=== PATIENT | female | born 1960 | race Caucasian/White ===

== ENCOUNTER → 2019-09-23 | Outpatient (CLI) | payer BC ==
--- NOTE | 2019-09-23 12:30 | KCIC ---
MR of the right knee HISTORY: Right knee pain, laterally recent months. TECHNIQUE: Routine multiplanar sequences are obtained. FINDINGS: No evidence of medial or lateral meniscal tear. Anterior and posterior cruciate ligaments are intact. Medial collateral ligament is intact. Iliotibial band unremarkable. Fibular collateral ligament, biceps femoris tendon and popliteus tendon are intact. Extensor mechanism is intact. Trace joint fluid. No significant Hartmann's cyst. Mild fissuring of the patella. No acute articular cartilage defect. No acute fracture. No aggressive bone destruction. IMPRESSION: 1. Mild fissuring of the medial patellar cartilage. 2. No evidence of meniscal tear or other internal derangement. Electronically signed by: Angel Cardenas MD (09/23/2019 12:27 PM) [id number]
== END | disposition home or self-care (01) ==
LOC: KCIC MRI 10:52
PROVIDERS: ATTEND Nurse Practitioner Family
DX: M25.561 Pain in right knee (principal)
CPT/HCPCS: 73721

== ENCOUNTER → 2021-04-01 | Day surgery (SDC) | payer BC ==
[~2021-04-01] VITALS: Ht 162.6 cm; Wt 75.0 kg
[~2021-04-01] MED LIST: ALBUTEROL SULFATE 2.5 MG/3 ML NEBU. NEB PRN; AMIT25TA PO; AMOX1TAB11 PO; EPINEPHrine 1 MG/ML VIAL INJ PRN; IV RINGERS,LACTATED 1000ML 1,000 ML IV SCH; LIDOCAINE 1% Multi-Dose 20 ML VIAL. INJ PRN; LIDOCAINE 2% PF 5 ML VIAL. ONE; LIDOCAINE 2% VISCOUS 100 ML BOTTLE. MM PRN; LIDOCAINE 4% TOPICAL 50 ML SOLUTION. MM PRN; OMEP40CA7 PO; PREG-9 PO; PROPOFOL 10 MG/ML (20ML) VIAL. IV ONE; ePHEDrine PF IN SALINE 50 MG/10 ML SYRINGE. IV ONE
[2021-04-01 10:04] VITALS: BP 119/70
[2021-04-01 10:27] LABS: BASO # 0.1 x10^3/uL (0.0-0.2); BASO % 1 % (0-3); EOS # 0.2 x10^3/uL (0.0-0.7); EOS % 2 % (0-3); HEMATOCRIT 39.8 % (36.0-47.0); HEMOGLOBIN 13.6 g/dL (12.0-15.5); LYMPH # 2.1 x10^3/uL (1.0-4.8); LYMPH % 30 % (24-48); MEAN CORPUSCULAR HEMOGLOBIN 31 pg (25-35); MEAN CORPUSCULAR HGB CONC 34 g/dL (31-37); MEAN CORPUSCULAR VOLUME 92 fL (79-100); MONO # 0.4 x10^3/uL (0.0-1.1); MONO % 6 % (0-9); NEUT # 4.4 x10^3/uL (1.8-7.7); NEUT % 61 % (31-73); PLATELET COUNT 176 x10^3/uL (140-400); RED BLOOD COUNT 4.33 x10^6/uL (3.50-5.40); RED CELL DISTRIBUTION WIDTH 14.4 % (11.5-14.5); WHITE BLOOD COUNT 7.2 x10^3/uL (4.0-11.0)
[2021-04-01 10:37] LABS: PROTHROMBIN TIME PATIENT 11.7 SEC (11.7-14.0)
--- NOTE | 2021-04-01 11:32 | OP ---
DATE OF SURGERY: 04/01/2021 BRONCHOSCOPY NOTE INDICATION: Hemoptysis. DESCRIPTION OF PROCEDURE: Informed consent was obtained from the patient, all risks and benefits were explained. She agreed to proceed with the procedure. Propofol was used for sedation by Anesthesia. Bronch was introduced through the left nostril. The upper airway was passed. Vocal cords moves equally with respiration. The trachea was entered. There was tracheal cartilage abnormality seen throughout the trachea. Dafne was sharp. Right lung was first examined. All subsegments of right upper, right middle and right lower lobe were examined. No endobronchial lesions seen. No secretions seen. Bronch was introduced into the left lung. There was no abnormality seen in the left upper lobe. However, upon inspection of the left lower lobe superior segment, there was some blood-tinged secretions coming out of the superior subsegment of the left lower lobe. Further inspection of the bronchoscopy and that segment revealed no endobronchial lesions. The other subsegment of the left lower lobe did not show any lesion either. Bronchoalveolar lavage performed from the superior subsegment of the left lower lobe. The patient tolerated the procedure well. IMPRESSION: 1. 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 No endobronchial lesion seen in either the right or the left lung. 3. Blood-tinged secretions coming out from the superior subsegment of the left lower lobe spilling into the other segments. Upon further inspection, no definite endobronchial lesion seen in that segment. Multiple lavages obtained from that subsegment and specimen sent for AFB culture and sensitivity, fungus and cytology and regular cultures. 4. The patient to follow up with Dr. Humberto Martin in the office to discuss the results of bronchoscopy. [facility] [place] Soraya TID: [id number] [facility] HOSPITALCynthia
[2021-04-01 11:44] VITALS: BP 118/57
--- NOTE | 2021-04-05 17:07 | PATHOLOGY ---
Note [facility] Accession Number: [id number] TESTS RESULT FLAG UNITS REF RANGE LAB Clinician Provided Cytology Information No. of containers..01 Other (Miscellaneous) Source: BAL LLL DIAGNOSIS: BAL LLL NEGATIVE FOR MALIGNANT CELLS. NORMAL BRONCHIAL CELLS ARE PRESENT. PULMONARY MACROPHAGES PRESENT, INDICATIVE OF LOWER RESPIRATORY TRACT SAMPLING. Signed out by: 02 Jeffrey Alston MD, Pathologist NPI- [id number] Performed by: Marisela Pal Driver License Examiner ([facility]) Gross description: 01 5ML, HAZY LIGHT, PINK /LCS 04/02/2021 1549 Local FLAG LEGEND: L-Low Normal,H-High Normal,LL-Alert Low,HH-Alert High <-Panic Low,>-Panic High,A-Abnormal,AA-Critical Abnormal Performed at: [facility] [address] [place] [address] Joel Nayak MD, [address] [address] [place] [address] Jeffrey Alston MD, Performed at: [address], [place] [id number] MD Joel Nayak MD Phone: [phone]
== END | disposition home or self-care (01) ==
LOC: SURG 09:23
PROVIDERS: ATTEND Internal Medicine Critical Care Medicine
DX: R04.2 Hemoptysis (principal); E78.00 Pure hypercholesterolemia, unspecified; K21.9 Gastro-esophageal reflux disease without esophagitis; M19.90 Unspecified osteoarthritis, unspecified site; Z87.891 Personal history of nicotine dependence; Z79.899 Other long term (current) drug therapy; Z98.890 Other specified postprocedural states
CPT/HCPCS: 31624; 36415; 85025; 85610; 87070; 87102; 87116; 87205; 88112; 94640; J2704; J3490; J7613; 31622; J0171

== ENCOUNTER 2021-05-17 15:16 | Inpatient (IN) | payer BC ==
[~2021-05-17] VITALS: Ht 162.6 cm; Wt 69.9 kg
[~2021-05-17 15:16] MED LIST changes: -ALBUTEROL SULFATE 2.5 MG/3 ML NEBU. NEB PRN; -EPINEPHrine 1 MG/ML VIAL INJ PRN; -IV RINGERS,LACTATED 1000ML 1,000 ML IV SCH; -LIDOCAINE 1% Multi-Dose 20 ML VIAL. INJ PRN; -LIDOCAINE 2% PF 5 ML VIAL. ONE; -LIDOCAINE 2% VISCOUS 100 ML BOTTLE. MM PRN; -LIDOCAINE 4% TOPICAL 50 ML SOLUTION. MM PRN; -PROPOFOL 10 MG/ML (20ML) VIAL. IV ONE; -ePHEDrine PF IN SALINE 50 MG/10 ML SYRINGE. IV ONE
--- NOTE | 2021-05-17 20:09 | PHYS DOC ---
Past Medical History Past Surgical History: No Surgical History Smoking Status: Current Every Day Smoker Alcohol Use: None General Adult EDM: Chief Complaint: MULTIPLE COMPLAINTS HPI: HPI: Patient is a 61 year old female who presents with tingling to the left side of her upper forehead, eye, nose, top of her left lip. Tingling is localized to left side of her face. Patient also reporting binocular diplopia. Patient states that all of her symptoms are coming and going. Patient takes 325 aspirin daily. Patient states that she was seen by her PCP this morning who ordered a CT of her head and advised her to be seen in the ER for further imaging. Patient also reports that she has been on antibiotics for 2 months for pneumonia. "My doctor said that my chest x-ray looked worse today". history of hypertension, hyperlipidemia, COPD. Review of Systems: Review of Systems: ROS At least 10 ROS systems have been reviewed and are negative except as documented in the HPI. General: Negative except as outlined in HPI above. Skin: Negative except as outlined in HPI above. HEENT: Negative except as outlined in HPI above. Neck: Negative except as outlined in HPI above. Respiratory: Negative except as outlined in HPI above.. Cardiovascular: Negative except as outlined in HPI above. Abdomen: Negative except as outlined in HPI above. : Negative except as outlined in HPI above. Back/MSK: Negative except as outlined in HPI above. Neuro: Negative except as outlined in HPI above. Psych: Negative except as outlined in HPI above. Heart Score: C/O Chest Pain: No Risk Factors: Risk Factors: DM, Current or recent (<one month) smoker, HTN, HLP, family history of CAD, obesity. Risk Scores: Score 0 - 3: 2.5% MACE over next 6 weeks - Discharge Home Score 4 - 6: 20.3% MACE over next 6 weeks - Admit for Clinical Observation Score 7 - 10: 72.7% MACE over next 6 weeks - Early Invasive Strategies Allergies: Allergies: Allergies Coded Allergies Type Severity Reaction Last Updated Verified No Known Drug Allergies 04/01/21 No Physical Exam: PE: Constitutional: Well developed, well nourished, no acute distress, non-toxic appearance. [] HENT: Normocephalic, atraumatic, bilateral external ears normal, oropharynx moist, no oral exudates, nose normal. [] Eyes: PERRLA, conjunctiva normal, no discharge Neck: Normal range of motion, no tenderness, supple, no stridor. [] Cardiovascular:Heart rate regular rhythm, no murmur [] Lungs & Thorax: Bilateral breath sounds clear to auscultation [] Abdomen: Bowel sounds normal, soft, no tenderness, no masses, no pulsatile masses. [] Skin: Warm, dry, no erythema, no rash. [] Back: No tenderness, no CVA tenderness. [] Extremities: No tenderness, no cyanosis, no clubbing, ROM intact, no edema. [] Neurologic: Alert and oriented X 3, normal motor function, tingling to left forehead, left side of nose, left upper lip, left cheek Psychologic: Affect normal, judgement normal, mood normal. [] Current Patient Data: Vital Signs: Vital Signs Date Time Temp Pulse Resp B/P (MAP) Pulse Ox O2 Delivery O2 Flow Rate FiO2 05/17/21 16:29 98.7 101 20 133/67 (89) 90 Room Air 98.7 EKG: EKG: Sinus rhythm. Heart rate 93 bpm. No STEMI. [] Radiology/Procedures: Radiology/Procedures: []EXAM: CHEST 2 VIEWS. HISTORY: Cough. COMPARISON: Today's CT. FINDINGS: Frontal and lateral views of the chest are obtained. There is an airspace infiltrate in the left lower lobe. Hyperinflation is consistent with chronic obstructive pulmonary disease. There is no pneumothorax or pleural effusion. The heart is not enlarged. There are atherosclerotic calcifications of the aorta. IMPRESSION: 1. Left lower lobe pneumonia. 2. Chronic obstructive pulmonary disease. Electronically signed by: Ricky Carlos MD (05/17/2021 9:43 PM) [id number] Course & Med Decision Making: Course & Med Decision Making Pertinent Labs and Imaging studies reviewed. (See chart for details) [] Nontoxic-appearing, 61-year-old female sent in by her PCP for abnormal CT head results. CT head concerning for intracranial hemorrhage. Patient reports that her symptoms continue to come and go. Patient takes 325 of Igor aspirin daily. Patient is hemodynamically stable. ER work-up consisted of urinalysis, labs, CT head, chest x-ray. Chest x-ray shows left lower lobe pneumonia which patient is currently being treated for with antibiotics. All labs unremarkable. Called Dr. Garay and spoke with NELLIE Neves regarding patient case. Pura recommended patient be admitted to the ICU with frequent neuro checks and blood pressure monitoring with a MRI scheduled for the morning. Pura also recommended contacting neurology. I spoke with Dr. Fraga who is consulted with neurology. Spoke with Dr. Pineda who will be accepting patient for intracranial hemorrhage. Discussed all results with patient. Discussed final admission plan. Patient agrees with admission plan and is appreciative. Patient is hemodynamically stable at the time of admission. Dragon Disclaimer: Dragon Disclaimer: This electronic medical record was generated, in whole or in part, using a voice recognition dictation system. Departure Departure Impression: Primary Impression: Intracranial hemorrhage Disposition: ADMITTED INPATIENT Admitting Physician: ALYSA Condition: STABLE Referrals: DONG NÚÑEZ MD (PCP) MASOOD RODRIGUEZ HEEL BOOM OPERATOR May 17, 2021 20:09
[2021-05-17] MEDS ORDERED: IV NORMAL SALINE 1000ML BAG 1,000 ML IV SCH (20:30)
[2021-05-17] MEDS ORDERED: ASPIRIN CHEWABLE 81 MG TABLET. PO ONE (20:30)
[2021-05-17 20:35] LABS: BASO # 0.1 x10^3/uL (0.0-0.2); BASO % 1 % (0-3); EOS # 0.2 x10^3/uL (0.0-0.7); EOS % 2 % (0-3); HEMATOCRIT 29.6 % (36.0-47.0); LYMPH # 3.6 x10^3/uL (1.0-4.8); LYMPH % 40 % (24-48); MEAN CORPUSCULAR HEMOGLOBIN 32 pg (25-35); MEAN CORPUSCULAR HGB CONC 34 g/dL (31-37); MEAN CORPUSCULAR VOLUME 95 fL (79-100); MONO # 0.6 x10^3/uL (0.0-1.1); MONO % 7 % (0-9); NEUT # 4.5 x10^3/uL (1.8-7.7); NEUT % 50 % (31-73); PLATELET COUNT 244 x10^3/uL (140-400); RED BLOOD COUNT 3.13 x10^6/uL (3.50-5.40); RED CELL DISTRIBUTION WIDTH 15.7 % (11.5-14.5); WHITE BLOOD COUNT 8.9 x10^3/uL (4.0-11.0)
[2021-05-17 20:38] LABS: BILIRUBIN,URINE SMALL (NEG); CLARITY,URINE CLEAR; COLOR,URINE AMBER; NITRITE,URINE NEGATIVE (NEG); PH,URINE 5.5 (<5.0-8.0); PROTEIN,URINE NEGATIVE (NEG-TRACE)
[2021-05-17 20:44] LABS: BACTERIA,URINE 0 /HPF (0-FEW); RBC,URINE 0 /HPF (0-2)
[2021-05-17 20:44] LABS: PROTHROMBIN TIME PATIENT 12.5 SEC (11.7-14.0)
[2021-05-17 20:51] LABS: CALCIUM 8.3 mg/dL (8.5-10.1); POTASSIUM 3.8 mmol/L (3.5-5.1)
[2021-05-17 21:00] LABS: ALBUMIN 3.9 g/dL (3.4-5.0); ALBUMIN/GLOBULIN RATIO 1.3 (1.0-1.7); MAGNESIUM 1.9 mg/dL (1.8-2.4); TOTAL BILIRUBIN 0.6 mg/dL (0.2-1.0)
[2021-05-17] MEDS ORDERED: ACETAMINOPHEN 650 MG SUPP.RECT. PR PRN (21:15)
[2021-05-17] MEDS ORDERED: PHARMACY TO REVIEW MEDS. MC PRN (21:15)
--- NOTE | 2021-05-17 21:45 | RAD ---
EXAM: CHEST 2 VIEWS. HISTORY: Cough. COMPARISON: Today's CT. FINDINGS: Frontal and lateral views of the chest are obtained. There is an airspace infiltrate in the left lower lobe. Hyperinflation is consistent with chronic obs tructive pulmonary disease. There is no pneumothorax or pleural effusion. The heart is not enlarged. There are atherosclerotic calcifications of the aorta. IMPRESSION: 1. Left lower lobe pneumonia. 2. Chronic obstructive pulmonary disease. Electronically signed by: Ricky Carlos MD (05/17/2021 9:43 PM) [id number]
--- NOTE | 2021-05-17 22:39 | EKG ---
[facility] [address] [place] [address] Test Date: 2021-05-17 Test Time: 21:04:37 Pat Name: PATTI ALICIA Department: Room: Gender: F Hematologist Oncologist: : [id number] Requested By: MASOOD RODRIGUEZ Order Number: [id number] Reading MD: Kunal Gonzalez Measurements Intervals [place] Rate: 93 P: 51 WV: 164 QRS: -28 QRSD: 70 T: 42 QT: 352 QTc: 440 Interpretive Statements SINUS RHYTHM LOW LIMB LEAD VOLTAGE Electronically Signed On 05-18-2021 14:18:54 [employer]CH[employer]IC by Kunal Gonzalez
[2021-05-17 23:30] VITALS: BP 118/55
[2021-05-17 23:45] VITALS: BP 101/61
[2021-05-18] VITALS (23 sets, daily range): BP systolic 85–117; BP diastolic 46–76
[2021-05-18] MEDS: IV NORMAL SALINE 1000ML BAG 1,000 ML IV SCH ×3 (01:00→21:00)
[2021-05-18] MEDS ORDERED: RALO60TA PO (01:03)
[2021-05-18] MEDS ORDERED: ASPI325T11 PO (01:03)
[2021-05-18] MEDS ORDERED: ATOR20TA58 PO (01:03)
[2021-05-18] MEDS ORDERED: AZITHROMYCIN 500 MG in IV NORMAL SALINE 250ML 250 ML IV SCH (08:00)
--- NOTE | 2021-05-18 08:10 | PDOC1 ---
History and Physical Date of Service: DOS: DATE: 05/18/21 TIME: 07:48 Chief Complaint: Chief Complain: TIA symptoms and pneumonia History of Present Illness: HPI: History obtained from discussion with the ED physician and chart review: 61-year-old female with past medical history of smoking, depression, neuropathic pain, peripheral vascular disease who comes in with tingling on the left side of her face. She also noticed double vision as well. Symptoms are coming and going. Patient does take aspirin 325 mg daily and has stated that she has had some hemoptysis. She also has been taking antibiotics for the past 2 months for pneumonia. Chest x-ray was done before admission on the day before and the chest x-ray apparently looked worse. PCP also ordered a CT head which showed intracranial hemorrhage and she was advised to come to the ED for further imaging. Patient currently denies fevers, shortness of breath, abdominal pain, hematuria, dysuria or syncope or headaches. Past Medical/Surgical History: PMH/PSH: PVD, COPD, pneumonia, GERD Past Surgical History: Aortofemoral iliac bypass Allergies: Allergies: Coded Allergies: No Known Drug Allergies (Unverified , 04/01/21) Family History: Family History: Reviewed with no relevant findings Social History: Social History: Smoking Status: Current Every Day Smoker Alcohol Use: None Current Medications: Current Medications Current Medications Aspirin (Aspirin Chewable) 324 mg 1X ONCE PO ; Start 05/17/21 at 20:30; Stop 05/17/21 at 20:32; Status DC Sodium Chloride 1,000 ml @ 1,000 mls/hr Q1H IV Last administered on 05/17/21at 20:30; Start 05/17/21 at 20:30; Stop 05/17/21 at 21:29; Status DC Info (Review Meds) 1 ea PRN 1X PRN MC SEE COMMENTS; Start 05/17/21 at 21:15 Acetaminophen (Tylenol Supp) 650 mg PRN Q6HRS PRN FL FEVER > 100.5'F or 38'C; Start 05/17/21 at 21:15 Nicardipine HCl 50 mg/Sodium Chloride 250 ml @ 25 mls/hr CONT PRN IV HYPERTENSION; Start 05/17/21 at 21:15 Sodium Chloride 1,000 ml @ 100 mls/hr Q10H IV Last administered on 05/18/21at 01:00; Start 05/18/21 at 01:00 Active Scripts Active Reported Evista (Raloxifene Hcl) 60 Mg Tablet 60 Mg PO DAILY Atorvastatin Calcium 20 Mg Tablet 20 Mg PO HS Aspirin Ec (Aspirin) 325 Mg Tablet. 325 Mg PO DAILY Amitriptyline Hcl 25 Mg Tablet 1 Tab PO QHS Lyrica (Pregabalin) 75 Mg Capsule 1 Cap PO TID Amox Tr-K Clv 875-125 Mg Tab (Amoxicillin/Potassium Clav) 1 Each Tablet 1 Tab PO BID Omeprazole 40 Mg Capsule. 1 Cap PO DAILY ROS: Review of Systems Review of System REVIEW OF SYSTEMS: GENERAL: Denies weakness SKIN: No bruising, hair changes or rashes. EYES: No blurred, double or loss of vision. NOSE AND THROAT: No history of nosebleeds, hoarseness or sore throat. HEART: No history of palpitations, chest pain or shortness of breath on exertion. LUNGS: Denies cough, hemoptysis, wheezing or shortness of breath. GASTROINTESTINAL: Denies changes in appetite, nausea, vomiting, diarrhea or constipation. GENITOURINARY: No history of frequency, urgency, hesitancy or nocturia. NEUROLOGIC: Tingling on the left side of her face and double vision PSYCHIATRIC: No history of panic, anxiety or depression. ENDOCRINE: No history of heat or cold intolerance, polyuria or polydipsia. EXTREMITIES: Denies joint pain, pain on walking or stiffness. Physical Exam: Vital Signs: Vital Signs Date Time Temp Pulse Resp B/P (MAP) Pulse Ox O2 Delivery O2 Flow Rate FiO2 05/18/21 07:00 98.4 89 23 111/61 (78) 96 Room Air 98.4 Physcial Exam: General: Well developed, well nourished, no acute distress, well appearing HEENT: Pupils equally round and reactive to light, EOMI, no discharge, normal conjunctiva Neck: Supple, no nuchal rigidity, no JVD, trachea midline, no tenderness Cardiac: RRR, no murmurs, no gallops, no rubs Chest/Lungs: CTAB, no wheeze, no rhonchi, no crackles Abdomen: soft, non-distended, no guarding, no peritoneal signs, non-tender Back: No tenderness Extremities: no edema, pulses intact, non-tender,capillary refill <3 sec bilateral upper and lower extremities, Neuro: Alert and oriented x 4, no focal deficits, normal speech Labs: Labs: Laboratory Tests Test 05/17/21 19:35 05/17/21 19:40 05/17/21 23:30 05/18/21 02:50 Urine Collection Type Unknown Urine Color Leticia Urine Clarity Clear Urine pH 5.5 (<5.0-8.0) Urine Specific [place] 1.025 (1.000-1.030) Urine Protein Negative mg/dL (NEG-TRACE) Urine Glucose (UA) Negative mg/dL (NEG) Urine Ketones (Stick) Negative mg/dL (NEG) Urine Blood Negative (NEG) Urine Nitrite Negative (NEG) Urine Bilirubin Small (NEG) Urine Urobilinogen Dipstick 1.0 mg/dL (0.2 mg/dL) Urine Leukocyte Esterase Negative (NEG) Urine RBC 0 /HPF (0-2) Urine WBC 1-4 /HPF (0-4) Urine Squamous Epithelial Cells Mod /LPF Urine Bacteria 0 /HPF (0-FEW) Urine Mucus Mod /LPF White Blood Count 8.9 x10^3/uL (4.0-11.0) Red Blood Count 3.13 x10^6/uL (3.50-5.40) Hemoglobin 10.0 g/dL (12.0-15.5) Hematocrit 29.6 % (36.0-47.0) Mean Corpuscular Volume 95 fL (79-100) Mean Corpuscular Hemoglobin 32 pg (25-35) Mean Corpuscular Hemoglobin Concent 34 g/dL (31-37) Red Cell Distribution Width 15.7 % (11.5-14.5) Platelet Count 244 x10^3/uL (140-400) Neutrophils (%) (Auto) 50 % (31-73) Lymphocytes (%) (Auto) 40 % (24-48) Monocytes (%) (Auto) 7 % (0-9) Eosinophils (%) (Auto) 2 % (0-3) Basophils (%) (Auto) 1 % (0-3) Neutrophils # (Auto) 4.5 x10^3/uL (1.8-7.7) Lymphocytes # (Auto) 3.6 x10^3/uL (1.0-4.8) Monocytes # (Auto) 0.6 x10^3/uL (0.0-1.1) Eosinophils # (Auto) 0.2 x10^3/uL (0.0-0.7) Basophils # (Auto) 0.1 x10^3/uL (0.0-0.2) Prothrombin Time 12.5 SEC (11.7-14.0) Prothromb Time International Ratio 0.9 (0.8-1.1) Sodium Level 143 mmol/L (136-145) Potassium Level 3.8 mmol/L (3.5-5.1) Chloride Level 104 mmol/L (98-107) Carbon Dioxide Level 27 mmol/L (21-32) Anion Gap 12 (6-14) Blood Urea Nitrogen 11 mg/dL (7-20) Creatinine 1.0 mg/dL (0.6-1.0) Estimated GFR (Cockcroft-Gault) 56.0 BUN/Creatinine Ratio 11 (6-20) Glucose Level 102 mg/dL (70-99) Calcium Level 8.3 mg/dL (8.5-10.1) Magnesium Level 1.9 mg/dL (1.8-2.4) Total Bilirubin 0.6 mg/dL (0.2-1.0) Aspartate Amino Transf (AST/SGOT) 18 U/L (15-37) Alanine Aminotransferase (ALT/SGPT) 13 U/L (14-59) Alkaline Phosphatase 113 U/L (46-116) Troponin I High Sensitivity 5 ng/L (4-50) 5 ng/L (4-50) 6 ng/L (4-50) TV-Hyx-Y-Type Natriuretic Peptide 118 pg/mL (0-124) Total Protein 7.0 g/dL (6.4-8.2) Albumin 3.9 g/dL (3.4-5.0) Albumin/Globulin Ratio 1.3 (1.0-1.7) Laboratory Tests Test 05/17/21 19:35 05/17/21 19:40 05/17/21 23:30 05/18/21 02:50 Urine Collection Type Unknown Urine Color [place] Urine Clarity Clear Urine pH 5.5 (<5.0-8.0) Urine Specific [place] 1.025 (1.000-1.030) Urine Protein Negative mg/dL (NEG-TRACE) Urine Glucose (UA) Negative mg/dL (NEG) Urine Ketones (Stick) Negative mg/dL (NEG) Urine Blood Negative (NEG) Urine Nitrite Negative (NEG) Urine Bilirubin Small (NEG) Urine Urobilinogen Dipstick 1.0 mg/dL (0.2 mg/dL) Urine Leukocyte Esterase Negative (NEG) Urine RBC 0 /HPF (0-2) Urine WBC 1-4 /HPF (0-4) Urine Squamous Epithelial Cells Mod /LPF Urine Bacteria 0 /HPF (0-FEW) Urine Mucus Mod /LPF White Blood Count 8.9 x10^3/uL (4.0-11.0) Red Blood Count 3.13 x10^6/uL (3.50-5.40) Hemoglobin 10.0 g/dL (12.0-15.5) Hematocrit 29.6 % (36.0-47.0) Mean Corpuscular Volume 95 fL (79-100) Mean Corpuscular Hemoglobin 32 pg (25-35) Mean Corpuscular Hemoglobin Concent 34 g/dL (31-37) Red Cell Distribution Width 15.7 % (11.5-14.5) Platelet Count 244 x10^3/uL (140-400) Neutrophils (%) (Auto) 50 % (31-73) Lymphocytes (%) (Auto) 40 % (24-48) Monocytes (%) (Auto) 7 % (0-9) Eosinophils (%) (Auto) 2 % (0-3) Basophils (%) (Auto) 1 % (0-3) Neutrophils # (Auto) 4.5 x10^3/uL (1.8-7.7) Lymphocytes # (Auto) 3.6 x10^3/uL (1.0-4.8) Monocytes # (Auto) 0.6 x10^3/uL (0.0-1.1) Eosinophils # (Auto) 0.2 x10^3/uL (0.0-0.7) Basophils # (Auto) 0.1 x10^3/uL (0.0-0.2) Prothrombin Time 12.5 SEC (11.7-14.0) Prothromb Time International Ratio 0.9 (0.8-1.1) Sodium Level 143 mmol/L (136-145) Potassium Level 3.8 mmol/L (3.5-5.1) Chloride Level 104 mmol/L (98-107) Carbon Dioxide Level 27 mmol/L (21-32) Anion Gap 12 (6-14) Blood Urea Nitrogen 11 mg/dL (7-20) Creatinine 1.0 mg/dL (0.6-1.0) Estimated GFR (Cockcroft-Gault) 56.0 BUN/Creatinine Ratio 11 (6-20) Glucose Level 102 mg/dL (70-99) Calcium Level 8.3 mg/dL (8.5-10.1) Magnesium Level 1.9 mg/dL (1.8-2.4) Total Bilirubin 0.6 mg/dL (0.2-1.0) Aspartate Amino Transf (AST/SGOT) 18 U/L (15-37) Alanine Aminotransferase (ALT/SGPT) 13 U/L (14-59) Alkaline Phosphatase 113 U/L (46-116) Troponin I High Sensitivity 5 ng/L (4-50) 5 ng/L (4-50) 6 ng/L (4-50) JV-Vez-T-Type Natriuretic Peptide 118 pg/mL (0-124) Total Protein 7.0 g/dL (6.4-8.2) Albumin 3.9 g/dL (3.4-5.0) Albumin/Globulin Ratio 1.3 (1.0-1.7) Images: Images PROCEDURE: CHEST PA & LATERAL IMPRESSION: 1. Left lower lobe pneumonia. 2. Chronic obstructive pulmonary disease. Assessment/Plan Assessment/Plan Acute intracranial hemorrhage, concerning for metastasis Left lower lobe pneumonia, possible gram-negative organisms possible cavitary mass History of COPD History of tobacco misuse Admit to hospitalist services for further management Continue empiric IV antibiotics Pending blood cultures and Legionella urine antigen and MRSA screen Pulmonology consult for cavitary mass, possible repeat bronchoscopy Neuro consult Neurosurgery consult Continue telemetry monitoring Continue every 2 neurochecks Pending MRI of the brain Continue Cardene drip to maintain systolic blood pressures between 140-1 80 Contraindicated at this time for DVT prophylaxis N.p.o. CODE STATUS full Discussed with RN and SW Disposition continue ICU care for neuro checks DPOA: Salvador Lobito, salvador A total of 45 minutes of critical care time was spent in reviewing chart, labs, and images. Discussed with RN and SW. Smoking cessation: Total time spent was 12 minutes in face to face counseling. Patient has agreed to consider nicotine patches/gum or to start on Varnicline when discharged Justifications for Admission Other Justification BOBO MARSHALL MD May 18, 2021 08:10
[2021-05-18] MEDS ORDERED: GADOTERATE 7.5 MMOL/15ML VIAL. IVP ONE (08:45)
[2021-05-18] MEDS ORDERED: cefTRIAXone IV Push 1 GM VIAL. IVP SCH (09:00)
--- NOTE | 2021-05-18 09:10 | PDOC2 ---
NEUROLOGY CONSULT Date of Service DOS: DATE: 05/18/21 TIME: 08:54 Reason for Consult Reason for Consult: Cerebral hemorrhage Referring Physician Referring Physician: Dr. Dow Source Source: Chart review, Patient History of Present Illness History of Present Illness The patient is a 61-year-old right-handed female who noticed some tingling in her left forehead and face yesterday morning. She also had some intermittent diplopia. She went to her primary care physician who ordered a CT of the head. Patient also had an abnormal CT of the chest. She was sent to the [place] emergency department. I discussed the case with NELLIE Dempsey last night, because of the possible hemorrhage she was not a candidate for alteplase and there was no need for other acute intervention. Neurosurgery is also on the case. This morning the patient still has the left facial numbness but denies headache or diplopia. There is no prior history of stroke, seizure, or head injury. She s ays that she has had pneumonia for the past 3 months. She smokes a pack of cigarettes per day. She has a chronic right foot drop with numbness ever since aortic surgery 3 years ago Past Medical History Pulmonary: COPD, Pneumonia GI: GERD Musculoskeletal: Osteoarthritis Past Surgical History Past Surgical History: , Tonsillectomy, Other (Aorta?, Left elbow and hand ) Family History Family History: No pertinent hx Social History Social History , works at the [employer], smokes 1 pack of cigarettes per day, rare alcohol Current Medications Current Medications Current Medications Aspirin (Aspirin Chewable) 324 mg 1X ONCE PO ; Start 05/17/21 at 20:30; Stop 05/17/21 at 20:32; Status DC Sodium Chloride 1,000 ml @ 1,000 mls/hr Q1H IV Last administered on 05/17/21at 20:30; Start 05/17/21 at 20:30; Stop 05/17/21 at 21:29; Status DC Info (Review Meds) 1 ea PRN 1X PRN MC SEE COMMENTS; Start 05/17/21 at 21:15 Acetaminophen (Tylenol Supp) 650 mg PRN Q6HRS PRN CA FEVER > 100.5'F or 38'C; Start 05/17/21 at 21:15 Nicardipine HCl 50 mg/Sodium Chloride 250 ml @ 25 mls/hr CONT PRN IV HYPERTENSION; Start 05/17/21 at 21:15 Sodium Chloride 1,000 ml @ 100 mls/hr Q10H IV Last administered on 05/18/21at 01:00; Start 05/18/21 at 01:00 Ceftriaxone Sodium (Rocephin) 1 gm Q24H IVP ; Start 05/18/21 at 09:00 Azithromycin 500 mg/Sodium Chloride 250 ml @ 250 mls/hr Q24H IV ; Start 05/18/21 at 08:00 Gadoterate Meglumine (Clariscan) 14 ml 1X ONCE IVP ; Start 05/18/21 at 08:45; Stop 05/18/21 at 08:46; Status DC Active Scripts Active Reported Evista (Raloxifene Hcl) 60 Mg Tablet 60 Mg PO DAILY Atorvastatin Calcium 20 Mg Tablet 20 Mg PO HS Aspirin Ec (Aspirin) 325 Mg Tablet. 325 Mg PO DAILY Amitriptyline Hcl 25 Mg Tablet 1 Tab PO QHS Lyrica (Pregabalin) 75 Mg Capsule 1 Cap PO TID Amox Tr-K Clv 875-125 Mg Tab (Amoxicillin/Potassium Clav) 1 Each Tablet 1 Tab PO BID Omeprazole 40 Mg Capsule. 1 Cap PO DAILY Allergies Allergies: Coded Allergies: No Known Drug Allergies (Unverified , 04/01/21) ROS Review of System Negative for fever, chills, weight loss, chest pain, indigestion, hematochezia, melena, and dysuria. Positive for dyspnea. Full 14-point review of systems is negative. Physical Exam Physical Examination General: Well-developed, well-nourished, white female, in no acute distress HEENT: Normocephalic andatraumatic. Temporal arteriespulsatile and nontender. Neck: Supple without bruit, no meningismus Musculoskeletal: Stability:see neurologic. Gait exam:see neurologic. Tone:see neurologic.Strength:see neurologic. Neurological: Mental Status:intact, orientation, memory, attention span/concentration, language, fund of knowledge normal. Cranial Nerves:Pupils equal and reactive to light, extraocular movements areintact, visual hurst are full to confrontation. Patchy left facial hypesthesia. There is no facial asymmetry. Vestibulo-ocular reflex is intact. Palate elevates and tongue protrudes in midline. All other cranial related problems are negative except as mentioned before.Reflexes:2+ and symmetric with flexor plantar responses. Motor:4/5 right foot drop, otherwise 5/5 strength with normal tone and bulk. Coordination:Finger-nose finger and rygz-ew-loau testing are normal. Rapid alternating movements and fine finger movements are intact. Gait:Normal. Sens ory:Normal pinprick, vibration, light touch, proprioception. Vitals VITALS Vital Signs Date Time Temp Pulse Resp B/P (MAP) Pulse Ox O2 Delivery O2 Flow Rate FiO2 05/18/21 08:00 90 27 113/55 (74) 91 Room Air 05/18/21 07:00 98.4 98.4 Labs Labs Laboratory Tests Test 05/17/21 19:35 05/17/21 19:40 05/17/21 23:30 05/18/21 02:50 Urine Collection Type Unknown Urine Color Leticia Urine Clarity Clear Urine pH 5.5 (<5.0-8.0) Urine Specific [place] 1.025 (1.000-1.030) Urine Protein Negative mg/dL (NEG-TRACE) Urine Glucose (UA) Negative mg/dL (NEG) Urine Ketones (Stick) Negative mg/dL (NEG) Urine Blood Negative (NEG) Urine Nitrite Negative (NEG) Urine Bilirubin Small (NEG) Urine Urobilinogen Dipstick 1.0 mg/dL (0.2 mg/dL) Urine Leukocyte Esterase Negative (NEG) Urine RBC 0 /HPF (0-2) Urine WBC 1-4 /HPF (0-4) Urine Squamous Epithelial Cells Mod /LPF Urine Bacteria 0 /HPF (0-FEW) Urine Mucus Mod /LPF White Blood Count 8.9 x10^3/uL (4.0-11.0) Red Blood Count 3.13 x10^6/uL (3.50-5.40) Hemoglobin 10.0 g/dL (12.0-15.5) Hematocrit 29.6 % (36.0-47.0) Mean Corpuscular Volume 95 fL (79-100) Mean Corpuscular Hemoglobin 32 pg (25-35) Mean Corpuscular Hemoglobin Concent 34 g/dL (31-37) Red Cell Distribution Width 15.7 % (11.5-14.5) Platelet Count 244 x10^3/uL (140-400) Neutrophils (%) (Auto) 50 % (31-73) Lymphocytes (%) (Auto) 40 % (24-48) Monocytes (%) (Auto) 7 % (0-9) Eosinophils (%) (Auto) 2 % (0-3) Basophils (%) (Auto) 1 % (0-3) Neutrophils # (Auto) 4.5 x10^3/uL (1.8-7.7) Lymphocytes # (Auto) 3.6 x10^3/uL (1.0-4.8) Monocytes # (Auto) 0.6 x10^3/uL (0.0-1.1) Eosinophils # (Auto) 0.2 x10^3/uL (0.0-0.7) Basophils # (Auto) 0.1 x10^3/uL (0.0-0.2) Prothrombin Time 12.5 SEC (11.7-14.0) Prothromb Time International Ratio 0.9 (0.8-1.1) Sodium Level 143 mmol/L (136-145) Potassium Level 3.8 mmol/L (3.5-5.1) Chloride Level 104 mmol/L (98-107) Carbon Dioxide Level 27 mmol/L (21-32) Anion Gap 12 (6-14) Blood Urea Nitrogen 11 mg/dL (7-20) Creatinine 1.0 mg/dL (0.6-1.0) Estimated GFR (Cockcroft-Gault) 56.0 BUN/Creatinine Ratio 11 (6-20) Glucose Level 102 mg/dL (70-99) Calcium Level 8.3 mg/dL (8.5-10.1) Magnesium Level 1.9 mg/dL (1.8-2.4) Total Bilirubin 0.6 mg/dL (0.2-1.0) Aspartate Amino Transf (AST/SGOT) 18 U/L (15-37) Alanine Aminotransferase (ALT/SGPT) 13 U/L (14-59) Alkaline Phosphatase 113 U/L (46-116) Troponin I High Sensitivity 5 ng/L (4-50) 5 ng/L (4-50) 6 ng/L (4-50) GE-Zdr-O-Type Natriuretic Peptide 118 pg/mL (0-124) Total Protein 7.0 g/dL (6.4-8.2) Albumin 3.9 g/dL (3.4-5.0) Albumin/Globulin Ratio 1.3 (1.0-1.7) Laboratory Tests Test 05/17/21 19:35 05/17/21 19:40 05/17/21 23:30 05/18/21 02:50 Urine Collection Type Unknown Urine Color Leticia Urine Clarity Clear Urine pH 5.5 (<5.0-8.0) Urine Specific [place] 1.025 (1.000-1.030) Urine Protein Negative mg/dL (NEG-TRACE) Urine Glucose (UA) Negative mg/dL (NEG) Urine Ketones (Stick) Negative mg/dL (NEG) Urine Blood Negative (NEG) Urine Nitrite Negative (NEG) Urine Bilirubin Small (NEG) Urine Urobilinogen Dipstick 1.0 mg/dL (0.2 mg/dL) Urine Leukocyte Esterase Negative (NEG) Urine RBC 0 /HPF (0-2) Urine WBC 1-4 /HPF (0-4) Urine Squamous Epithelial Cells Mod /LPF Urine Bacteria 0 /HPF (0-FEW) Urine Mucus Mod /LPF White Blood Count 8.9 x10^3/uL (4.0-11.0) Red Blood Count 3.13 x10^6/uL (3.50-5.40) Hemoglobin 10.0 g/dL (12.0-15.5) Hematocrit 29.6 % (36.0-47.0) Mean Corpuscular Volume 95 fL (79-100) Mean Corpuscular Hemoglobin 32 pg (25-35) Mean Corpuscular Hemoglobin Concent 34 g/dL (31-37) Red Cell Distribution Width 15.7 % (11.5-14.5) Platelet Count 244 x10^3/uL (140-400) Neutrophils (%) (Auto) 50 % (31-73) Lymphocytes (%) (Auto) 40 % (24-48) Monocytes (%) (Auto) 7 % (0-9) Eosinophils (%) (Auto) 2 % (0-3) Basophils (%) (Auto) 1 % (0-3) Neutrophils # (Auto) 4.5 x10^3/uL (1.8-7.7) Lymphocytes # (Auto) 3.6 x10^3/uL (1.0-4.8) Monocytes # (Auto) 0.6 x10^3/uL (0.0-1.1) Eosinophils # (Auto) 0.2 x10^3/uL (0.0-0.7) Basophils # (Auto) 0.1 x10^3/uL (0.0-0.2) Prothrombin Time 12.5 SEC (11.7-14.0) Prothromb Time International Ratio 0.9 (0.8-1.1) Sodium Level 143 mmol/L (136-145) Potassium Level 3.8 mmol/L (3.5-5.1) Chloride Level 104 mmol/L (98-107) Carbon Dioxide Level 27 mmol/L (21-32) Anion Gap 12 (6-14) Blood Urea Nitrogen 11 mg/dL (7-20) Creatinine 1.0 mg/dL (0.6-1.0) Estimated GFR (Cockcroft-Gault) 56.0 BUN/Creatinine Ratio 11 (6-20) Glucose Level 102 mg/dL (70-99) Calcium Level 8.3 mg/dL (8.5-10.1) Magnesium Level 1.9 mg/dL (1.8-2.4) Total Bilirubin 0.6 mg/dL (0.2-1.0) Aspartate Amino Transf (AST/SGOT) 18 U/L (15-37) Alanine Aminotransferase (ALT/SGPT) 13 U/L (14-59) Alkaline Phosphatase 113 U/L (46-116) Troponin I High Sensitivity 5 ng/L (4-50) 5 ng/L (4-50) 6 ng/L (4-50) NE-Ila-D-Type Natriuretic Peptide 118 pg/mL (0-124) Total Protein 7.0 g/dL (6.4-8.2) Albumin 3.9 g/dL (3.4-5.0) Albumin/Globulin Ratio 1.3 (1.0-1.7) Images Images [facility] radiology, 05/17: CT HEAD INDICATION: Reason: LEFT SIDED FACIAL NUMBNESS / Spl. Instructions: / History: COMPARISON: None Available. Exposure: One or more of the following individualized dose reduction techniques were utilized for this examination: 1. Automated exposure control 2. Adjustment of the mA and/or kV according to patient size 3. Use of iterative reconstruction technique TECHNIQUE: 5 mm contiguous axial images were obtained from the skull base to the vertex in both bone and soft tissue algorithm. FINDINGS: There is a small focus of hyperdensity identified in the left libertad region measuring 6 mm. Small hypodensity right cerebellum likely old infarct. No mass effect or midline shift. Ventricular size is appropriate. Basal cisterns are patent. No fractures identified.Bhatt-white differentiation is preserved.Globes and orbits are within normal limits. Paranasal sinuses and mastoid air cells are clear. IMPRESSION: 6 mm hyperdense focus identified in the left libertad, differential includes small bleed, venous angioma or metastasis. Recommend MRI without and with IV contrast for further evaluation. Chest CT without intravenous contrast. HISTORY: Hemoptysis. TECHNIQUE: Computed tomographic images of the chest were obtained without contrast. Multiplanar reformatting was performed. *One or more of the following individualized dose reduction techniques were utilized for this examination: 1. Automated exposure control. 2. Adjustment of the mA and/or kV according to patient size. 3. Use of iterative reconstruction technique. COMPARISON: 02/15/2021. FINDINGS: The heart is normal in size. There is calcified atherosclerotic plaque involving the aorta, coronary arteries and aortic arch great vessels. There are nonspecific mediastinal and hilar lymph nodes, some of which are calcified and consistent with healed granulomatous disease. These are stable in appearance. There is progressive masslike consolidation with surrounding groundglass infiltrate involving the left lower lobe. There has been progression of a component of suspected cavitation superimposed on emphysematous change in this location. There is no pneumothorax or pleural effusion. There are few nonspecific groundglass opacities within the right lower lobe and right middle lobe and lingula. There is posterior dependent and basilar atelectasis. There is biapical pleural parenchymal scarring. There is a small hiatal hernia. There are calcified granulomas throughout the spleen. There is no acute or suspicious osseous finding. IMPRESSION: 1. Progressive masslike consolidation involving the left lower lobe with surrounding groundglass infiltrate and component of cavitation and severe focal emphysematous change. The possibility of underlying neoplasm is not excluded. 2. Emphysema with nonspecific groundglass opacity scattered throughout the right lower lobe, right middle lobe and lingula, likely infectious or inflammatory in etiology. 3. Stable nonspecific mediastinal and hilar lymph nodes. Assessment/Plan Assessment/Plan Impression: I reviewed the CT of the head and agree that there is a 6 mm hyperdense focus identified in the left libertad, differential includes small bleed, venous angioma or metastasis. Patient is not hypertensive, doubt hypertensive hemorrhage. [facility] Dr. Martin ordered this study as well as a chest CT which is also abnormal as reviewed above. Recommendations: MRI of the brain with and without contrast Further studies depending on the results including CT angiogram, but with abnormal chest CT and normal blood pressure I am mostly worried about a metastasis. Angiogram would not help much if this is a small venous or cavernous angioma. Pulmonary consultation Also see hemorrhagic stroke orders. Thank you for letting me help with the patient's care. SANDIE SANTIAGO MD May 18, 2021 09:10
--- NOTE | 2021-05-18 10:24 | RAD ---
MRI BRAIN WO+W History:Reason: hemorrhage vs met libertad, 14mL clariscan / Spl. Instructions: / History: Technique: Multiplanar, multi sequential without and with intravenous contrast MR imaging was perform ed of the brain. Comparison: May 17, 2021. Findings: Slightly enhancing left posterior pontine lesion measures 0.5 x 0.5 cm. There is adjacent edema with overall region measuring 1.1 x 0.7 cm. There is associated gradient hypointensity indicating hemorrha ge corresponding with CT finding of hyperdensity. No additional enhancing lesions identified. Additional gradient hypointensity within the right occipital lobe, likely related to prior microhemor rhage. No acute infarct. No hydrocephalus. Chronic bilateral cerebellar lacunar infarcts, right greater than left. Mild brain parenchymal volume loss. Mild FLAIR hyperintensities within the hemispheric white m atter, most often due to chronic microvascular ischemia. Imaged orbits are unremarkable. Imaged paranasal sinuses and mastoid air cells are clear. Impression: 1. Left posterior pontine hemorrhagic enhancing lesion with mild adjacent edema, may represent metas tasis or vascular malformation such as cavernous malformation or capillary telangiectasia with recent hemorrhage. Recommend 2-3 month follow-up MRI with and without contrast. 2. Several chronic cerebellar lacunar infarcts. Electronically signed by: Froylan Brito DO (05/18/2021 10:21 AM) [facility]
--- NOTE | 2021-05-18 13:16 | PDOC ---
Provider Note Date of Service: DATE: 05/18/21 TIME: 13:10 Provider Note Patient seen and examined The patient is a 61-year-old right-handed female who noticed some tingling in her left forehead and face yesterday morning. She also had some intermittent diplopia. She went to her primary care physician who ordered a CT of the head. Patient also had an abnormal CT of the chest. She was sent to the [place] emergency department. I discussed the case with NELLIE Dempsey last night, because of the possible hemorrhage she was not a candidate for alteplase and there was no need for other acute intervention. Neurosurgery is also on the case. This morning the patient still has the left facial numbness but denies headache or diplopia. There is no prior history of stroke, seizure, or head injury. She says that she has had pneumonia for the past 3 months. She smokes a pack of cigarettes per day. She has a chronic right foot drop with numbness ever since aortic surgery 3 years ago on exam-orientation, memory normal. Pupils equal and reactive to light, extraocular movements areintact. Patchy left facial hypesthesia. There is no facial asymmetry.All other cranial related problems are negative except as mentioned before.Reflexes:2+ and symmetric with flexor plantar responses. Motor:4/5 right foot drop, otherwise 5/5 strength with normal tone and bulk. Coordination:Finger-nose finger normal. Imaging reviewed-CT with 6 mm hyperdense focus identified in the left libertad, differential includes small bleed, venous angioma or metastasis. MRI with Left posterior pontine hemorrhagic enhancing lesion with mild adjacent edema, may represent metastasis or vascular malformation such as cavernous malformation or capillary telangiectasia with recent hemorrhage. Pulmonary following. will need follow up MRI brain in 2 to 3 months will follow Justifications for Admission Other Justification LIDA MAO MD May 18, 2021 13:16
--- NOTE | 2021-05-18 14:03 | PDOC ---
PULMONARY PROGRESS NOTES DATE: 05/18/21 TIME: 14:01 Vitals Vital Signs Date Time Temp Pulse Resp B/P (MAP) Pulse Ox O2 Delivery O2 Flow Rate FiO2 05/18/21 13:00 96 18 111/58 (75) 96 Room Air 05/18/21 12:00 97.6 97.6 Labs Laboratory Tests Test 05/17/21 19:35 05/17/21 19:40 05/17/21 23:30 05/18/21 02:50 Urine Collection Type Unknown Urine Color Leticia Urine Clarity Clear Urine pH 5.5 (<5.0-8.0) Urine Specific [place] 1.025 (1.000-1.030) Urine Protein Negative mg/dL (NEG-TRACE) Urine Glucose (UA) Negative mg/dL (NEG) Urine Ketones (Stick) Negative mg/dL (NEG) Urine Blood Negative (NEG) Urine Nitrite Negative (NEG) Urine Bilirubin Small (NEG) Urine Urobilinogen Dipstick 1.0 mg/dL (0.2 mg/dL) Urine Leukocyte Esterase Negative (NEG) Urine RBC 0 /HPF (0-2) Urine WBC 1-4 /HPF (0-4) Urine Squamous Epithelial Cells Mod /LPF Urine Bacteria 0 /HPF (0-FEW) Urine Mucus Mod /LPF White Blood Count 8.9 x10^3/uL (4.0-11.0) Red Blood Count 3.13 x10^6/uL (3.50-5.40) Hemoglobin 10.0 g/dL (12.0-15.5) Hematocrit 29.6 % (36.0-47.0) Mean Corpuscular Volume 95 fL (79-100) Mean Corpuscular Hemoglobin 32 pg (25-35) Mean Corpuscular Hemoglobin Concent 34 g/dL (31-37) Red Cell Distribution Width 15.7 % (11.5-14.5) Platelet Count 244 x10^3/uL (140-400) Neutrophils (%) (Auto) 50 % (31-73) Lymphocytes (%) (Auto) 40 % (24-48) Monocytes (%) (Auto) 7 % (0-9) Eosinophils (%) (Auto) 2 % (0-3) Basophils (%) (Auto) 1 % (0-3) Neutrophils # (Auto) 4.5 x10^3/uL (1.8-7.7) Lymphocytes # (Auto) 3.6 x10^3/uL (1.0-4.8) Monocytes # (Auto) 0.6 x10^3/uL (0.0-1.1) Eosinophils # (Auto) 0.2 x10^3/uL (0.0-0.7) Basophils # (Auto) 0.1 x10^3/uL (0.0-0.2) Prothrombin Time 12.5 SEC (11.7-14.0) Prothromb Time International Ratio 0.9 (0.8-1.1) Sodium Level 143 mmol/L (136-145) Potassium Level 3.8 mmol/L (3.5-5.1) Chloride Level 104 mmol/L (98-107) Carbon Dioxide Level 27 mmol/L (21-32) Anion Gap 12 (6-14) Blood Urea Nitrogen 11 mg/dL (7-20) Creatinine 1.0 mg/dL (0.6-1.0) Estimated GFR (Cockcroft-Gault) 56.0 BUN/Creatinine Ratio 11 (6-20) Glucose Level 102 mg/dL (70-99) Calcium Level 8.3 mg/dL (8.5-10.1) Magnesium Level 1.9 mg/dL (1.8-2.4) Total Bilirubin 0.6 mg/dL (0.2-1.0) Aspartate Amino Transf (AST/SGOT) 18 U/L (15-37) Alanine Aminotransferase (ALT/SGPT) 13 U/L (14-59) Alkaline Phosphatase 113 U/L (46-116) Troponin I High Sensitivity 5 ng/L (4-50) 5 ng/L (4-50) 6 ng/L (4-50) KJ-Myb-K-Type Natriuretic Peptide 118 pg/mL (0-124) Total Protein 7.0 g/dL (6.4-8.2) Albumin 3.9 g/dL (3.4-5.0) Albumin/Globulin Ratio 1.3 (1.0-1.7) Procalcitonin < 0.10 ng/mL (0.00-0.10) Laboratory Tests Test 05/17/21 19:35 05/17/21 19:40 05/17/21 23:30 05/18/21 02:50 Urine Collection Type Unknown Urine Color Leticia Urine Clarity Clear Urine pH 5.5 (<5.0-8.0) Urine Specific [place] 1.025 (1.000-1.030) Urine Protein Negative mg/dL (NEG-TRACE) Urine Glucose (UA) Negative mg/dL (NEG) Urine Ketones (Stick) Negative mg/dL (NEG) Urine Blood Negative (NEG) Urine Nitrite Negative (NEG) Urine Bilirubin Small (NEG) Urine Urobilinogen Dipstick 1.0 mg/dL (0.2 mg/dL) Urine Leukocyte Esterase Negative (NEG) Urine RBC 0 /HPF (0-2) Urine WBC 1-4 /HPF (0-4) Urine Squamous Epithelial Cells Mod /LPF Urine Bacteria 0 /HPF (0-FEW) Urine Mucus Mod /LPF White Blood Count 8.9 x10^3/uL (4.0-11.0) Red Blood Count 3.13 x10^6/uL (3.50-5.40) Hemoglobin 10.0 g/dL (12.0-15.5) Hematocrit 29.6 % (36.0-47.0) Mean Corpuscular Volume 95 fL (79-100) Mean Corpuscular Hemoglobin 32 pg (25-35) Mean Corpuscular Hemoglobin Concent 34 g/dL (31-37) Red Cell Distribution Width 15.7 % (11.5-14.5) Platelet Count 244 x10^3/uL (140-400) Neutrophils (%) (Auto) 50 % (31-73) Lymphocytes (%) (Auto) 40 % (24-48) Monocytes (%) (Auto) 7 % (0-9) Eosinophils (%) (Auto) 2 % (0-3) Basophils (%) (Auto) 1 % (0-3) Neutrophils # (Auto) 4.5 x10^3/uL (1.8-7.7) Lymphocytes # (Auto) 3.6 x10^3/uL (1.0-4.8) Monocytes # (Auto) 0.6 x10^3/uL (0.0-1.1) Eosinophils # (Auto) 0.2 x10^3/uL (0.0-0.7) Basophils # (Auto) 0.1 x10^3/uL (0.0-0.2) Prothrombin Time 12.5 SEC (11.7-14.0) Prothromb Time International Ratio 0.9 (0.8-1.1) Sodium Level 143 mmol/L (136-145) Potassium Level 3.8 mmol/L (3.5-5.1) Chloride Level 104 mmol/L (98-107) Carbon Dioxide Level 27 mmol/L (21-32) Anion Gap 12 (6-14) Blood Urea Nitrogen 11 mg/dL (7-20) Creatinine 1.0 mg/dL (0.6-1.0) Estimated GFR (Cockcroft-Gault) 56.0 BUN/Creatinine Ratio 11 (6-20) Glucose Level 102 mg/dL (70-99) Calcium Level 8.3 mg/dL (8.5-10.1) Magnesium Level 1.9 mg/dL (1.8-2.4) Total Bilirubin 0.6 mg/dL (0.2-1.0) Aspartate Amino Transf (AST/SGOT) 18 U/L (15-37) Alanine Aminotransferase (ALT/SGPT) 13 U/L (14-59) Alkaline Phosphatase 113 U/L (46-116) Troponin I High Sensitivity 5 ng/L (4-50) 5 ng/L (4-50) 6 ng/L (4-50) TT-Odd-N-Type Natriuretic Peptide 118 pg/mL (0-124) Total Protein 7.0 g/dL (6.4-8.2) Albumin 3.9 g/dL (3.4-5.0) Albumin/Globulin Ratio 1.3 (1.0-1.7) Procalcitonin < 0.10 ng/mL (0.00-0.10) Medications Active Scripts Medications Dose Route/Sig Max Daily Dose Days Date Category Evista (Raloxifene Hcl) 60 Mg Tablet 60 Mg PO DAILY 05/18/21 Reported Atorvastatin Calcium 20 Mg Tablet 20 Mg PO HS 05/18/21 Reported Aspirin Ec (Aspirin) 325 Mg Tablet.dr 325 Mg PO DAILY 05/18/21 Reported Amitriptyline Hcl 25 Mg Tablet 1 Tab PO QHS 04/01/21 Reported Lyrica (Pregabalin) 75 Mg Capsule 1 Cap PO TID 04/01/21 Reported Amox Tr-K Clv 875-125 Mg Tab (Amoxicillin/Potassium Clav) 1 Each Tablet 1 Tab PO BID 04/01/21 Reported Omeprazole 40 Mg Capsule. 1 Cap PO DAILY 04/01/21 Reported Impression . Full consult dictated CT chest from 05/17 reviewed progression of the cavitary mass, along with groundglass opacities We will proceed with repeating bronchoscopy We will discussed with the neurologist. Continue empiric antibiotics for now. FRANKY JACK MD May 18, 2021 14:03
[2021-05-18] MEDS ORDERED: DOXYCYCLINE HYCLATE 100 MG in IV DEXTROSE 5% 100ML 100 ML IV ONE (14:15)
[2021-05-18] MEDS ORDERED: PIP/TAZO PER PHARMACY MC PRN (14:15)
--- NOTE | 2021-05-18 16:06 | NUR ---
SS following for discharge planning. SS reviewed pt chart and discussed with pt RN. Pt is from home alone and is currently on room air. COVID19 test pending. Pt is full vaccinated. Pt on IV Doxycycline and IV Zosyn. NPO. ST following. PT/OT recommended home with home healthcare. SS will continue to follow for discharge planning.
[2021-05-18] MEDS ORDERED: PREGABALIN 75 MG CAPSULE PO ONE (17:30)
[2021-05-18] MEDS: PIPERACILLIN/TAZOBACTAM 3.375 GM in IV NORMAL SALINE 50ML 50 ML IV SCH (18:11)
--- NOTE | 2021-05-18 19:35 | CONS ---
DATE OF CONSULTATION: 05/18/2021 ATTENDING PHYSICIAN: Dr. Chaim Dow. REASON FOR CONSULTATION: The patient is seen in Pulmonary consultation at the request of Dr. Dow for abnormal CT chest. HISTORY OF PRESENT ILLNESS: The patient is a 61-year-old that presented with tingling on the left side of her upper forehead, eyes and top of her left lip. The patient was initially seen at [facility]. She had a CT head. CT of the head did show intracranial hemorrhage. The patient was transferred to [facility] for further evaluation and management. I was asked to see her in Pulmonary consultation as a result of an abnormal CT chest. The patient has actually been following my partner, Dr. Martin, for abnormal CAT scan of the chest dating back to sometime in 03/2021. She actually underwent a bronchoscopy on 04/01/2021. There was no endobronchial lesion. AFB smears and cultures of the washings were negative. Fungal cultures were likewise negative. Bacterial cultures were negative. She had a cytology, which was negative. She has had previous QuantiFERON Gold test, which was negative. She has been followed in the office for the hemoptysis, left upper lobe superior segment infiltrate with cavitary features. She has underlying COPD, tobacco dependence. In fact, she was recently seen. The patient was recently referred to ENT. She underwent endoscopy by Dr. Allen who did see some blood in the upper airway, but there were no active abnormalities seen on ENT exam. The patient over the last several days has had increasing cough. She continues at times to bring up some mucus mixed in with blood. She denies fever or chills. She is currently receiving IV antibiotics. The patient underwent an MRI of the brain here, which revealed a left posterior pontine hemorrhage enhancing lesion with adjacent edema. The thinking is that this may represent either vascular malformation or metastatic disease. Recommendations to repeat the MRI in 2 months. PAST MEDICAL HISTORY: 1. Persistent superior segment of the left upper lobe cavitary lesion. She has had previous bronchoscopy. Details as indicated above. 2. Chronic obstructive pulmonary disease. 3. Tobacco dependent. 4. Previous history of aortobifemoral graft placed in 2016. PAST SURGICAL HISTORY: As above. SOCIAL HISTORY: She works from home, continues to smoke. FAMILY HISTORY: Colon cancer, breast cancer, throat cancer. No lung cancer. REVIEW OF SYSTEMS: As indicated above, otherwise a 10-point system was reviewed and negative. CURRENT MEDICATIONS: List was reviewed. She is receiving Zithromax and ceftriaxone. She actually took 2 months' worth of Augmentin as an outpatient. PHYSICAL EXAMINATION: VITAL SIGNS: Stable. O2 saturation was greater than 92%, currently on room air. HEENT: Eyes: The sclerae were nonicteric. NECK: Jugular venous distention was not elevated. No lymphadenopathy. CHEST: Full expansion. LUNGS: She had scattered rhonchi with increased breath sounds in the left lower base. CARDIOVASCULAR: Regular rate and rhythm with S1, S2, no S3. ABDOMEN: Soft. EXTREMITIES: No clubbing, cyanosis. Minimal edema. NEUROLOGIC: The patient was awake, alert, following commands. A detailed neuro exam was not performed. LABORATORY DATA: Reviewed. White count was normal, hemoglobin and hematocrit were noted. Troponin level was not elevated. Electrolytes were normal. Calcium level was 8.3, albumin was 3.9. IMPRESSION: 1. Abnormal MRI revealing 6-mm hyperdense foci identified in the left libertad. 2. Persistent abnormal CT chest revealing progressive mass-like consolidation involving the left lower lobe upper superior segment with surrounding ground glass opacities. 3. Chronic obstructive pulmonary disease. 4. Tobacco dependent. 5. Cerebrovascular accident related to abnormal MRI revealing 6-mm hyperdense foci identified in the left libertad. PLAN: 1. Continue empiric antibiotics. We will continue antibiotics, change to Zosyn for anaerobic coverage. 2. We will discuss with Dr. Neri. 3. I am leaning towards repeating bronchoscopy. 4. Avoid anticoagulation. I do appreciate the privilege in sharing in [facility]. RADHA/REYNALDO HAM: Rj TID: [id number]
[2021-05-18] MEDS: PREGABALIN 75 MG CAPSULE PO SCH (21:47)
[2021-05-18] MEDS: ATORVASTATIN CALCIUM 20 MG TABLET PO SCH (21:49)
[2021-05-18] MEDS: AMITRIPTYLINE HCL 25 MG TABLET. PO SCH (21:49)
[2021-05-18] MEDS: DOXYCYCLINE HYCLATE 100 MG in IV DEXTROSE 5% 100ML 100 ML IV SCH (21:50)
[2021-05-19] VITALS (24 sets, daily range): BP systolic 94–141; BP diastolic 48–71
[2021-05-19] MEDS: PIPERACILLIN/TAZOBACTAM 3.375 GM in IV NORMAL SALINE 50ML 50 ML IV SCH ×4 (00:01→17:52)
[2021-05-19] MEDS: IV NORMAL SALINE 1000ML BAG 1,000 ML IV SCH ×2 (03:00→15:12)
[2021-05-19] MEDS ORDERED: PANTOPRAZOLE 40 MG TABLET.DR. PO SCH (07:30)
[2021-05-19] MEDS: DOXYCYCLINE HYCLATE 100 MG in IV DEXTROSE 5% 100ML 100 ML IV SCH ×2 (08:01→20:37)
--- NOTE | 2021-05-19 08:59 | PDOC ---
PROGRESS NOTES Date of Service DATE: 05/19/21 TIME: 08:56 Assessment Left posterior pontine hemorrhagic enhancing lesion with mild adjacent edema, may represent metastasis or vascular malformation such as cavernous malformation or capillary telangiectasia with recent hemorrhage Several chronic cerebellar lacunar infarcts. Abnormal chest CT Failed bedside swallow test Plan Repeat MRI of the brain with and without contrast in 2 months I do not see a need for CT angiogram Video dysphagia study Pulmonary consultation appreciated, no neurological contraindication to repeating the bronchoscopy Subjective Feels better, coughing a lot Objective Vital Signs Date Time Temp Pulse Resp B/P (MAP) Pulse Ox O2 Delivery O2 Flow Rate FiO2 05/19/21 07:00 86 18 117/61 (79) 95 Room Air 05/19/21 04:09 98.5 98.5 Intake and Output 05/19/21 07:00 Intake Total 1545 ml Output Total 420 ml Balance 1125 ml Intake Oral 0 ml IV Total 1545 ml Output Urine Total 420 ml # Bowel Movements 1 PHYSICAL EXAM Alert. Oriented to time, place and person. PERRL. EOMI. CN: Left side of nose is still numb, otherwise no focal findings. Muscle tone: normal. Muscle strength: 5/5 DTR: 2+ Plantar reflex: Flexor Gait: not examined in bed. Sensory exam: no abnormal findings. No cerebellar signs elicited. Review of Relevant I have reviewed the following items ileana (where applicable) has been applied. Labs Laboratory Tests Test 05/17/21 19:35 05/17/21 19:40 05/17/21 23:30 05/18/21 02:50 Urine Collection Type Unknown Urine Color Leticia Urine Clarity Clear Urine pH 5.5 (<5.0-8.0) Urine Specific [place] 1.025 (1.000-1.030) Urine Protein Negative mg/dL (NEG-TRACE) Urine Glucose (UA) Negative mg/dL (NEG) Urine Ketones (Stick) Negative mg/dL (NEG) Urine Blood Negative (NEG) Urine Nitrite Negative (NEG) Urine Bilirubin Small (NEG) Urine Urobilinogen Dipstick 1.0 mg/dL (0.2 mg/dL) Urine Leukocyte Esterase Negative (NEG) Urine RBC 0 /HPF (0-2) Urine WBC 1-4 /HPF (0-4) Urine Squamous Epithelial Cells Mod /LPF Urine Bacteria 0 /HPF (0-FEW) Urine Mucus Mod /LPF White Blood Count 8.9 x10^3/uL (4.0-11.0) Red Blood Count 3.13 x10^6/uL (3.50-5.40) Hemoglobin 10.0 g/dL (12.0-15.5) Hematocrit 29.6 % (36.0-47.0) Mean Corpuscular Volume 95 fL (79-100) Mean Corpuscular Hemoglobin 32 pg (25-35) Mean Corpuscular Hemoglobin Concent 34 g/dL (31-37) Red Cell Distribution Width 15.7 % (11.5-14.5) Platelet Count 244 x10^3/uL (140-400) Neutrophils (%) (Auto) 50 % (31-73) Lymphocytes (%) (Auto) 40 % (24-48) Monocytes (%) (Auto) 7 % (0-9) Eosinophils (%) (Auto) 2 % (0-3) Basophils (%) (Auto) 1 % (0-3) Neutrophils # (Auto) 4.5 x10^3/uL (1.8-7.7) Lymphocytes # (Auto) 3.6 x10^3/uL (1.0-4.8) Monocytes # (Auto) 0.6 x10^3/uL (0.0-1.1) Eosinophils # (Auto) 0.2 x10^3/uL (0.0-0.7) Basophils # (Auto) 0.1 x10^3/uL (0.0-0.2) Prothrombin Time 12.5 SEC (11.7-14.0) Prothromb Time International Ratio 0.9 (0.8-1.1) Sodium Level 143 mmol/L (136-145) Potassium Level 3.8 mmol/L (3.5-5.1) Chloride Level 104 mmol/L (98-107) Carbon Dioxide Level 27 mmol/L (21-32) Anion Gap 12 (6-14) Blood Urea Nitrogen 11 mg/dL (7-20) Creatinine 1.0 mg/dL (0.6-1.0) Estimated GFR (Cockcroft-Gault) 56.0 BUN/Creatinine Ratio 11 (6-20) Glucose Level 102 mg/dL (70-99) Calcium Level 8.3 mg/dL (8.5-10.1) Magnesium Level 1.9 mg/dL (1.8-2.4) Total Bilirubin 0.6 mg/dL (0.2-1.0) Aspartate Amino Transf (AST/SGOT) 18 U/L (15-37) Alanine Aminotransferase (ALT/SGPT) 13 U/L (14-59) Alkaline Phosphatase 113 U/L (46-116) Troponin I High Sensitivity 5 ng/L (4-50) 5 ng/L (4-50) 6 ng/L (4-50) XD-Ikq-[id number]-Type Natriuretic Peptide 118 pg/mL (0-124) Total Protein 7.0 g/dL (6.4-8.2) Albumin 3.9 g/dL (3.4-5.0) Albumin/Globulin Ratio 1.3 (1.0-1.7) Procalcitonin < 0.10 ng/mL (0.00-0.10) Medications Current Medications Aspirin (Aspirin Chewable) 324 mg 1X ONCE PO ; Start 05/17/21 at 20:30; Stop 05/17/21 at 20:32; Status DC Sodium Chloride 1,000 ml @ 1,000 mls/hr Q1H IV Last administered on 05/17/21at 20:30; Start 05/17/21 at 20:30; Stop 05/17/21 at 21:29; Status DC Info (Review Meds) 1 ea PRN 1X PRN MC SEE COMMENTS; Start 05/17/21 at 21:15 Acetaminophen (Tylenol Supp) 650 mg PRN Q6HRS PRN [place] FEVER > 100.5'F or 38'C; Start 05/17/21 at 21:15 Nicardipine HCl 50 mg/Sodium Chloride 250 ml @ 25 mls/hr CONT PRN IV HYPERTENSION; Start 05/17/21 at 21:15 Sodium Chloride 1,000 ml @ 100 mls/hr Q10H IV Last administered on 05/18/21at 21:00; Start 05/18/21 at 01:00 Ceftriaxone Sodium (Rocephin) 1 gm Q24H IVP Last administered on 05/18/21at 09:31; Start 05/18/21 at 09:00; Stop 05/18/21 at 14:05; Status DC Azithromycin 500 mg/Sodium Chloride 250 ml @ 250 mls/hr Q24H IV Last administered on 05/18/21at 09:31; Start 05/18/21 at 08:00; Stop 05/18/21 at 14:05; Status DC Gadoterate Meglumine (Clariscan) 14 ml 1X ONCE IVP Last administered on 05/18/21at 08:55; Start 05/18/21 at 08:45; Stop 05/18/21 at 08:46; Status DC Piperacillin Sod/ Tazobactam Sod (Zosyn Per Pharmacy) 1 each PRN DAILY PRN MC SEE COMMENTS; Start 05/18/21 at 14:15 Doxycycline Hyclate 100 mg/ Dextrose 100 ml @ 50 mls/hr 1X ONCE IV Last administered on 05/18/21at 14:26; Start 05/18/21 at 14:15; Stop 05/18/21 at 16:14; Status DC Doxycycline Hyclate 100 mg/ Dextrose 100 ml @ 50 mls/hr Q12HR IV Last administered on 05/19/21at 08:01; Start 05/18/21 at 21:00 Piperacillin Sod/ Tazobactam Sod 3.375 gm/Sodium Chloride 50 ml @ 100 mls/hr Q6HRS IV Last administered on 05/19/21at 05:13; Start 05/18/21 at 18:00 Amitriptyline HCl (Elavil) 25 mg QHS PO Last administered on 05/18/21at 21:49; Start 05/18/21 at 21:00 Atorvastatin Calcium (Lipitor) 20 mg HS PO Last administered on 05/18/21at 21:49; Start 05/18/21 at 21:00 Pregabalin (Lyrica) 75 mg TID PO Last administered on 05/18/21at 21:47; Start 05/18/21 at 21:00 Pantoprazole Sodium (Protonix) 40 mg DAILYAC PO ; Start 05/19/21 at 07:30 Pregabalin (Lyrica) 75 mg 1X ONCE PO Last administered on 05/18/21at 18:11; Start 05/18/21 at 17:30; Stop 05/18/21 at 17:31; Status DC Active Scripts Active Reported Evista (Raloxifene Hcl) 60 Mg Tablet 60 Mg PO DAILY Atorvastatin Calcium 20 Mg Tablet 20 Mg PO HS Aspirin Ec (Aspirin) 325 Mg Tablet.dr 325 Mg PO DAILY Amitriptyline Hcl 25 Mg Tablet 1 Tab PO QHS Lyrica (Pregabalin) 75 Mg Capsule 1 Cap PO TID Amox Tr-K Clv 875-125 Mg Tab (Amoxicillin/Potassium Clav) 1 Each Tablet 1 Tab PO BID Omeprazole 40 Mg Capsule. 1 Cap PO DAILY Vitals/I & O Vital Sign - Last 24 Hours 05/18/21 05/18/21 05/18/21 05/18/21 09:00 10:00 11:07 12:00 Pulse 91 88 94 Resp 18 24 38 B/P (MAP) 106/59 (75) 108/61 (77) 95/48 (64) Pulse Ox 96 97 94 O2 Delivery Room Air Room Air Room Air Room Air 05/18/21 05/18/21 05/18/21 05/18/21 12:00 13:00 14:00 15:00 Temp 97.6 97.6 Pulse 93 96 89 91 Resp 24 18 16 20 B/P (MAP) 113/76 (88) 111/58 (75) 110/64 (79) 87/54 (65) Pulse Ox 94 96 98 92 O2 Delivery Room Air Room Air Room Air Room Air 05/18/21 05/18/21 05/18/21 05/18/21 16:00 16:00 17:00 18:00 Temp 98.2 98.2 Pulse 93 94 98 Resp 18 16 14 B/P (MAP) 101/63 (76) 102/50 (67) 99/58 (72) Pulse Ox 98 96 97 O2 Delivery Room Air Room Air Room Air Room Air 05/18/21 05/18/21 05/18/21 05/18/21 19:00 20:00 20:49 21:00 Temp 98.3 98.3 Pulse 102 96 92 Resp 18 22 22 B/P (MAP) 96/51 (66) 107/54 (71) 99/54 (69) Pulse Ox 95 91 92 O2 Delivery Room Air Room Air Room Air Room Air 05/18/21 05/18/21 05/18/21 05/19/21 22:00 23:05 23:59 00:06 Temp 98.5 98.5 Pulse 98 90 87 Resp 20 22 20 B/P (MAP) 117/76 (90) 108/60 (76) 114/58 (76) Pulse Ox 95 93 92 O2 Delivery Room Air Room Air Room Air Room Air 05/19/21 05/19/21 05/19/21 05/19/21 01:13 02:03 03:06 04:09 Temp 98.5 98.5 Pulse 89 89 86 95 Resp 20 20 21 32 B/P (MAP) 97/56 (70) 116/60 (78) 100/48 (65) 131/64 (86) Pulse Ox 90 98 97 99 O2 Delivery Room Air Room Air Room Air Room Air 05/19/21 05/19/21 05/19/21 05/19/21 04:13 05:14 06:11 07:00 Pulse 87 83 86 Resp 21 19 18 B/P (MAP) 103/53 (70) 104/58 (73) 117/61 (79) Pulse Ox 97 95 95 O2 Delivery Room Air Room Air Room Air Room Air Intake and Output 05/18/21 05/18/21 05/19/21 15:00 23:00 07:00 Intake Total 250 ml 1050 ml 245 ml Output Total 180 ml 240 ml 0 ml Balance 70 ml 810 ml 245 ml Images MRI BRAIN WO+W History:Reason: hemorrhage vs met libertad, 14mL clariscan / Spl. Instructions: / History: Technique: Multiplanar, multi sequential without and with intravenous contrast MR imaging was performed of the brain. Comparison: May 17, 2021. Findings: Slightly enhancing left posterior pontine lesion measures 0.5 x 0.5 cm. There is adjacent edema with overall region measuring 1.1 x 0.7 cm. There is associated gradient hypointensity indicating hemorrhage corresponding with CT finding of hyperdensity. No additional enhancing lesions identified. Additional gradient hypointensity within the right occipital lobe, likely related to prior microhemorrhage. No acute infarct. No hydrocephalus. Chronic bilateral cerebellar lacunar infarcts, right greater than left. Mild brain parenchymal volume loss. Mild FLAIR hyperintensities within the hemispheric white matter, most often due to chronic microvascular ischemia. Imaged orbits are unremarkable. Imaged paranasal sinuses and mastoid air cells are clear. Impression: 1. Left posterior pontine hemorrhagic enhancing lesion with mild adjacent edema, may represent metastasis or vascular malformation such as cavernous malformation or capillary telangiectasia with recent hemorrhage. Recommend 2-3 month follow-up MRI with and without contrast. 2. Several chronic cerebellar lacunar infarcts. Justicifation of Admission Dx: Justifications for Admission: Justification of Admission Dx: Yes Acute Hemorrhagic Stroke: Acute Hemorrhagic Stroke SANDIE SANTIAGO MD May 19, 2021 08:59
[2021-05-19] MEDS: PREGABALIN 75 MG CAPSULE PO SCH ×3 (09:00→21:00)
--- NOTE | 2021-05-19 09:12 | PDOC ---
PULMONARY PROGRESS NOTES DATE: 05/19/21 TIME: 09:12 Subjective Patient with no new symptoms, no more short of breath, no productive cough Vitals Vital Signs Date Time Temp Pulse Resp B/P (MAP) Pulse Ox O2 Delivery O2 Flow Rate FiO2 05/19/21 07:00 86 18 117/61 (79) 95 Room Air 05/19/21 04:09 98.5 98.5 ROS: No Nausea, No Chest Pain, No Abdominal Pain, No Increase Cough General: Alert Lungs: Crackles Cardiovascular: S1, S2 Abdomen: Soft Neuro Exam: Alert Extremities: No Edema Skin: Warm Labs Laboratory Tests Test 05/17/21 19:35 05/17/21 19:40 05/17/21 23:30 05/18/21 02:50 Urine Collection Type Unknown Urine Color Leticia Urine Clarity Clear Urine pH 5.5 (<5.0-8.0) Urine Specific [place] 1.025 (1.000-1.030) Urine Protein Negative mg/dL (NEG-TRACE) Urine Glucose (UA) Negative mg/dL (NEG) Urine Ketones (Stick) Negative mg/dL (NEG) Urine Blood Negative (NEG) Urine Nitrite Negative (NEG) Urine Bilirubin Small (NEG) Urine Urobilinogen Dipstick 1.0 mg/dL (0.2 mg/dL) Urine Leukocyte Esterase Negative (NEG) Urine RBC 0 /HPF (0-2) Urine WBC 1-4 /HPF (0-4) Urine Squamous Epithelial Cells Mod /LPF Urine Bacteria 0 /HPF (0-FEW) Urine Mucus Mod /LPF White Blood Count 8.9 x10^3/uL (4.0-11.0) Red Blood Count 3.13 x10^6/uL (3.50-5.40) Hemoglobin 10.0 g/dL (12.0-15.5) Hematocrit 29.6 % (36.0-47.0) Mean Corpuscular Volume 95 fL (79-100) Mean Corpuscular Hemoglobin 32 pg (25-35) Mean Corpuscular Hemoglobin Concent 34 g/dL (31-37) Red Cell Distribution Width 15.7 % (11.5-14.5) Platelet Count 244 x10^3/uL (140-400) Neutrophils (%) (Auto) 50 % (31-73) Lymphocytes (%) (Auto) 40 % (24-48) Monocytes (%) (Auto) 7 % (0-9) Eosinophils (%) (Auto) 2 % (0-3) Basophils (%) (Auto) 1 % (0-3) Neutrophils # (Auto) 4.5 x10^3/uL (1.8-7.7) Lymphocytes # (Auto) 3.6 x10^3/uL (1.0-4.8) Monocytes # (Auto) 0.6 x10^3/uL (0.0-1.1) Eosinophils # (Auto) 0.2 x10^3/uL (0.0-0.7) Basophils # (Auto) 0.1 x10^3/uL (0.0-0.2) Prothrombin Time 12.5 SEC (11.7-14.0) Prothromb Time International Ratio 0.9 (0.8-1.1) Sodium Level 143 mmol/L (136-145) Potassium Level 3.8 mmol/L (3.5-5.1) Chloride Level 104 mmol/L (98-107) Carbon Dioxide Level 27 mmol/L (21-32) Anion Gap 12 (6-14) Blood Urea Nitrogen 11 mg/dL (7-20) Creatinine 1.0 mg/dL (0.6-1.0) Estimated GFR (Cockcroft-Gault) 56.0 BUN/Creatinine Ratio 11 (6-20) Glucose Level 102 mg/dL (70-99) Calcium Level 8.3 mg/dL (8.5-10.1) Magnesium Level 1.9 mg/dL (1.8-2.4) Total Bilirubin 0.6 mg/dL (0.2-1.0) Aspartate Amino Transf (AST/SGOT) 18 U/L (15-37) Alanine Aminotransferase (ALT/SGPT) 13 U/L (14-59) Alkaline Phosphatase 113 U/L (46-116) Troponin I High Sensitivity 5 ng/L (4-50) 5 ng/L (4-50) 6 ng/L (4-50) [id number]-[id number]-Type Natriuretic Peptide 118 pg/mL (0-124) Total Protein 7.0 g/dL (6.4-8.2) Albumin 3.9 g/dL (3.4-5.0) Albumin/Globulin Ratio 1.3 (1.0-1.7) Procalcitonin < 0.10 ng/mL (0.00-0.10) Medications Active Scripts Medications Dose Route/Sig Max Daily Dose Days Date Category Evista (Raloxifene Hcl) 60 Mg Tablet 60 Mg PO DAILY 05/18/21 Reported Atorvastatin Calcium 20 Mg Tablet 20 Mg PO HS 05/18/21 Reported Aspirin Ec (Aspirin) 325 Mg Tablet. 325 Mg PO DAILY 05/18/21 Reported Amitriptyline Hcl 25 Mg Tablet 1 Tab PO QHS 04/01/21 Reported Lyrica (Pregabalin) 75 Mg Capsule 1 Cap PO TID 04/01/21 Reported Amox Tr-K Clv 875-125 Mg Tab (Amoxicillin/Potassium Clav) 1 Each Tablet 1 Tab PO BID 04/01/21 Reported Omeprazole 40 Mg Capsule. 1 Cap PO DAILY 04/01/21 Reported Impression . IMPRESSION: 1. Abnormal MRI revealing 6-mm hyperdense foci identified in the left libertad. 2. Persistent abnormal CT chest revealing progressive mass-like consolidation involving the left lower lobe upper superior segment with surrounding ground glass opacities. 3. Chronic obstructive pulmonary disease. 4. Tobacco dependent. 5. Cerebrovascular accident related to abnormal MRI revealing 6-mm hyperdense foci identified in the left libertad. Plan . Updated 05/19 Risk benefits and alternatives reviewed for bronchoscopy, patient consented She has been n.p.o. since last night Continue empiric antibiotics Follow neurology PLAN: 1. Continue empiric antibiotics. We will continue antibiotics, change to Zosyn for anaerobic coverage. 2. We will discuss with Dr. Neri. 3. I am leaning towards repeating bronchoscopy. 4. Avoid anticoagulation. I do appreciate the privilege in sharing in Dagmar's care. FRANKY JACK MD May 19, 2021 09:12
[2021-05-19] MEDS ORDERED: LIDOCAINE 1% Multi-Dose 20 ML VIAL. ONE (10:25)
[2021-05-19] MEDS ORDERED: LIDOCAINE 2% VISCOUS 100 ML BOTTLE. ONE (10:25)
[2021-05-19] MEDS ORDERED: LIDOCAINE 4% TOPICAL 50 ML SOLUTION. ONE (10:25)
[2021-05-19] MEDS ORDERED: LIDOCAINE 4% TOPICAL 50 ML SOLUTION. MM PRN (10:30)
[2021-05-19] MEDS ORDERED: LIDOCAINE 2% VISCOUS 100 ML BOTTLE. MM PRN (10:30)
[2021-05-19] MEDS ORDERED: ALBUTEROL SULFATE 2.5 MG/3 ML NEBU. NEB ONE (10:30)
[2021-05-19] MEDS ORDERED: LIDOCAINE 1% Multi-Dose 20 ML VIAL. INJ PRN (10:30)
[2021-05-19] MEDS ORDERED: fentaNYL PF VIAL 100 MCG/2 ML VIAL IVP ONE (10:45)
[2021-05-19] MEDS ORDERED: MIDAZOLAM HCL/PF 2 MG/2 ML VIAL. IV ONE (10:45)
--- NOTE | 2021-05-19 11:37 | PDOC ---
[employer] PROGRESS NOTE Date of Service DOS: DATE: 05/19/21 TIME: 11:34 Chief Complaint Chief Complaint Acute intracranial hemorrhage, concerning for metastasis Left lower lobe pneumonia, possible gram-negative organisms possible cavitary mass History of COPD History of tobacco misuse Pending video swallow Continue empiric IV antibiotics Pending blood cultures and Legionella urine antigen and MRSA screen Pulmonology consult for cavitary mass, possible repeat bronchoscopy Neuro consult agree with repeat bronchoscopy. Pending video dysphagia study. C an repeat MRI with and without contrast in 2 months. Neurosurgery consult no further recommendations Continue telemetry monitoring Continue every 2 neurochecks Pending MRI of the brain Continue Cardene drip to maintain systolic blood pressures between 140-1 80 Contraindicated at this time for DVT prophylaxis N.p.o. CODE STATUS full Discussed with RN and SW Disposition continue ICU care for neuro checks DPOA: Salvador Robin, son History of Present Illness History of Present Illness 61-year-old female with past medical history of smoking, depression, neuropathic pain, peripheral vascular disease who comes in with tingling on the left side of her face. She also noticed double vision as well. Symptoms are coming and going. Patient does take aspirin 325 mg daily and has stated that she has had some hemoptysis. She also has been taking antibiotics for the past 2 months for pneumonia. Chest x-ray was done before admission on the day before and the chest x-ray apparently looked worse. PCP also ordered a CT head which showed intracranial hemorrhage and she was advised to come to the ED for further imaging. Patient currently denies fevers, shortness of breath, abdominal pain, hematuria, dysuria or syncope or headaches. Vitals/I&O Vitals/I&O: Vital Signs Date Time Temp Pulse Resp B/P (MAP) Pulse Ox O2 Delivery O2 Flow Rate FiO2 05/19/21 11:02 18 100 Room Air 05/19/21 10:00 92 104/56 (72) 05/19/21 08:00 98.3 98.3 I & O 05/18/21 05/18/21 05/19/21 15:00 23:00 07:00 Intake Total 250 ml 1050 ml 245 ml Output Total 180 ml 240 ml 0 ml Balance 70 ml 810 ml 245 ml Physical Exam General: Alert, Oriented X3, Cooperative Heart: Regular rate Lungs: Clear Abdomen: Normal bowel sounds Extremities: No clubbing Skin: No rashes Labs Labs: Laboratory Tests Test 05/18/21 12:30 SARS-CoV-2 RNA (KAVON) Negative (Negative) Comment Review of Relevant I have reviewed the following items ileana (where applicable) has been applied. Medications: Current Medications Medications (Trade) Dose Ordered Sig/Andres Route PRN Reason Start Time Stop Time Status Last Admin Dose Admin Doxycycline Hyclate 100 mg/ Dextrose 100 ml @ 50 mls/hr 1X ONCE IV 05/18/21 14:15 05/18/21 16:14 DC 05/18/21 14:26 Doxycycline Hyclate 100 mg/ Dextrose 100 ml @ 50 mls/hr Q12HR IV 05/18/21 21:00 05/19/21 08:01 Piperacillin Sod/ Tazobactam Sod 3.375 gm/Sodium Chloride 50 ml @ 100 mls/hr Q6HRS IV 05/18/21 18:00 05/19/21 05:13 Amitriptyline HCl (Elavil) 25 mg QHS PO 05/18/21 21:00 05/18/21 21:49 Atorvastatin Calcium (Lipitor) 20 mg HS PO 05/18/21 21:00 05/18/21 21:49 Pregabalin (Lyrica) 75 mg TID PO 05/18/21 21:00 05/18/21 21:47 Pregabalin (Lyrica) 75 mg 1X ONCE PO 05/18/21 17:30 05/18/21 17:31 DC 05/18/21 18:11 Lidocaine HCl (Lidocaine 2% Viscous) 100 ml PRN 1X PRN MM FOR PROCEDURE 05/19/21 10:30 05/20/21 10:29 05/19/21 10:40 Lidocaine HCl (Lidocaine 1% 20ml Vial) 20 ml PRN 1X PRN INJ SEE COMMENTS 05/19/21 10:30 05/20/21 10:29 05/19/21 10:40 Lidocaine HCl (Lidocaine 4% Topical) 50 ml PRN 1X PRN MM SEE COMMENTS 05/19/21 10:30 05/20/21 10:29 05/19/21 10:40 Albuterol Sulfate (Ventolin Neb Soln) 2.5 mg 1X ONCE NEB 05/19/21 10:30 05/19/21 10:31 DC 05/19/21 10:39 Midazolam HCl (Versed) 4 mg 1X ONCE IV 05/19/21 10:45 05/19/21 10:46 DC 05/19/21 11:01 Fentanyl Citrate (Fentanyl 2ml Vial) 50 mcg 1X ONCE IVP 05/19/21 10:45 05/19/21 10:46 DC 05/19/21 11:02 Justifications for Admission Other Justification BOBO MARSHALL MD May 19, 2021 11:37
--- NOTE | 2021-05-19 11:49 | PDOC4 ---
PROCEDURE Procedure Procedure; bronchoscopy, bronchoalveolar lavage left lower lobe Date of procedure 05/19/2021 Bronchoscopy Fatuma Sedation, total of Versed 3mg, fentanyl 50 mcg Description Timeout was performed prior to sedation. Vital signs and O2 saturation were maintained within the normal limits throughout the procedure. The patient was sedated with a total of 4 mg of Versed 50 mcg of fentanyl. The bronchoscope was passed through the left nares. The vocal cords were identified, vocal cords were anesthetized with a total of 5 cc of 4% lidocaine. The bronchoscope was passed through the vocal cords into the proximal trachea which was normal the distal trachea was likewise normal. There was blood seeping down from the nasal cavity into the right and left segments and subsegments, the blood was Cleared away with saline, the right and left segments and subsegments were well visualized there was no endobronchial lesion. There was no significant purulent secretions. The scope was wedged into the left lower lobe bronchus and a bronchoalveolar lavage was performed. The return was serosanguineous. Patient had experienced a nasal bleed from passing the scope through the nasal cavity. As a consequence the blood seeped down to the left lower lobe segments. There was no active bleeding once the blood was cleared away with the scope Findings 1. Normal vocal cords 2. No endobronchial lesion 3. No purulent secretions We will await the BAL results patient tolerated procedure, no immediate complications FRANKY JACK MD May 19, 2021 11:49
[2021-05-19] MEDS: AA 4.25 %/CALCIUM/LYTES/D5W 1,000 ML IV SCH (15:12)
--- NOTE | 2021-05-19 16:35 | NUR ---
SS following up with discharge planning. SS reviewed pt chart and discussed with pt RN. Pt is currently on room air. COVID19 negative. Pt on Clinimix. NPO. ST following. PT/OT recommended home with home healthcare. Pt on IV Doxycycline and IV Zosyn. SS will continue to follow for discharge planning.
[2021-05-19] MEDS: AMITRIPTYLINE HCL 25 MG TABLET. PO SCH (21:00)
[2021-05-19] MEDS: ATORVASTATIN CALCIUM 20 MG TABLET PO SCH (21:00)
[2021-05-20] VITALS (11 sets, daily range): BP systolic 111–144; BP diastolic 58–80
[2021-05-20] MEDS: PIPERACILLIN/TAZOBACTAM 3.375 GM in IV NORMAL SALINE 50ML 50 ML IV SCH ×3 (00:43→13:04)
[2021-05-20] MEDS: AA 4.25 %/CALCIUM/LYTES/D5W 1,000 ML IV SCH (02:45)
--- NOTE | 2021-05-20 08:13 | PDOC ---
PULMONARY PROGRESS NOTES DATE: 05/20/21 TIME: 08:12 Subjective Patient wishes to be discharged home Patient with no new symptoms, no more short of breath, no productive cough Vitals Vital Signs Date Time Temp Pulse Resp B/P (MAP) Pulse Ox O2 Delivery O2 Flow Rate FiO2 05/20/21 06:00 92 18 124/71 (88) 96 Room Air 05/20/21 04:00 98.2 98.2 05/19/21 11:45 2.0 ROS: No Nausea, No Chest Pain, No Abdominal Pain, No Increase Cough General: Alert Lungs: Crackles Cardiovascular: S1, S2 Abdomen: Soft Neuro Exam: Alert Extremities: No Edema Skin: Warm Labs Laboratory Tests Test 05/18/21 12:30 05/18/21 14:30 SARS-CoV-2 RNA (KAVON) Negative (Negative) Nasal Screen MRSA (PCR) Negative (NEGATIVE) Medications Active Scripts Medications Dose Route/Sig Max Daily Dose Days Date Category Evista (Raloxifene Hcl) 60 Mg Tablet 60 Mg PO DAILY 05/18/21 Reported Atorvastatin Calcium 20 Mg Tablet 20 Mg PO HS 05/18/21 Reported Aspirin Ec (Aspirin) 325 Mg Tablet. 325 Mg PO DAILY 05/18/21 Reported Amitriptyline Hcl 25 Mg Tablet 1 Tab PO QHS 04/01/21 Reported Lyrica (Pregabalin) 75 Mg Capsule 1 Cap PO TID 04/01/21 Reported Amox Tr-K Clv 875-125 Mg Tab (Amoxicillin/Potassium Clav) 1 Each Tablet 1 Tab PO BID 04/01/21 Reported Omeprazole 40 Mg Capsule. 1 Cap PO DAILY 04/01/21 Reported Impression . IMPRESSION: 1. Abnormal MRI revealing 6-mm hyperdense foci identified in the left libertad. 2. Persistent abnormal CT chest revealing progressive mass-like consolidation involving the left lower lobe upper superior segment with surrounding ground glass opacities. 3. Chronic obstructive pulmonary disease. 4. Tobacco dependent. 5. Cerebrovascular accident related to abnormal MRI revealing 6-mm hyperdense foci identified in the left libertad. 6. Status post bronchoscopy 05/19 no endobronchial lesion, no purulent secretions. Plan . Updated 05/20 Status post bronchoscopy yesterday so far cultures negative Patient okay to discharge home today continue Augmentin until she sees Dr. Martin in the office on June [address] Dow updated 05/19 Risk benefits and alternatives reviewed for bronchoscopy, patient consented She has been n.p.o. since last night Continue empiric antibiotics Follow neurology FRANKY JACK MD May 20, 2021 08:13
[2021-05-20] MEDS ORDERED: ONDANSETRON PF 4 MG/2 ML VIAL. IVP PRN (09:00)
[2021-05-20] MEDS: PREGABALIN 75 MG CAPSULE PO SCH ×2 (09:00→13:05)
[2021-05-20] MEDS: DOXYCYCLINE HYCLATE 100 MG in IV DEXTROSE 5% 100ML 100 ML IV SCH (09:54)
[2021-05-20] MEDS ORDERED: AMOX1TAB11 PO (11:29)
--- NOTE | 2021-05-20 12:34 | DISCH ---
DISCHARGE INSTRUCTIONS Condition on Discharge Condition on Discharge: Stable Activity After Discharge Activity Instructions for Disc: Activity as tolerated Exercise Instruction after Dis: Walk 15 min, 3 x per day Driving Instructions after Dis: Do not drive today Weight Bearing Status after Di: No restrictions Diet after Discharge Diet after Discharge: Cardiac Follow-Up Follow up with: PCP within 2 weeks of discharge for your C. difficile results Follow Up With: Pulmonology as needed or as scheduled, MRI of brain in 2 months BOBO MARSHALL MD May 20, 2021 12:34
--- NOTE | 2021-05-20 12:37 | PDOC ---
PROGRESS NOTES Date of Service DATE: 05/20/21 TIME: 12:35 Assessment Left posterior pontine hemorrhagic enhancing lesion with mild adjacent edema, may represent metastasis or vascular malformation such as cavernous malformation or capillary telangiectasia with recent hemorrhage Several chronic cerebellar lacunar infarcts. Abnormal chest CT Failed bedside swallow test Plan Repeat MRI of the brain with and without contrast in 2 months, Dr. Monique's office is arranging, I left patient my card to call me in 2 or 3 months if she does not hear anything, I told her to make sure she does not fall through the cracks She is following up with Dr. Martin for yesterday's bronchoscopy results I do not see a need for CT angiogram Speech therapy is seeing her at same time as I, if she passes her swallow evaluation, she can be discharged Subjective Feeling better, left nasal numbness has nearly resolved Objective Vital Signs Date Time Temp Pulse Resp B/P (MAP) Pulse Ox O2 Delivery O2 Flow Rate FiO2 05/20/21 08:00 Room Air 05/20/21 06:00 92 18 124/71 (88) 96 05/20/21 04:00 98.2 98.2 05/19/21 11:45 2.0 Intake and Output 05/20/21 06:59 Intake Total 1423 ml Output Total 1590 ml Balance -167 ml Intake Oral 0 ml IV Total 1423 ml Output Urine Total 1590 ml PHYSICAL EXAM Alert. Oriented to time, place and person. PERRL. EOMI. CN: Left side of nose is still numb, otherwise no focal findings. Muscle tone: normal. Muscle strength: 5/5 DTR: 2+ Plantar reflex: Flexor Gait: normal. Sensory exam: no abnormal findings. No cerebellar signs elicited. Review of Relevant I have reviewed the following items ileana (where applicable) has been applied. Labs Laboratory Tests Test 05/18/21 14:30 Nasal Screen MRSA (PCR) Negative (NEGATIVE) Microbiology 05/19/21 Gram Stain Evaluation - Final, Resulted 05/19/21 Respiratory Culture, Resulted Pending Medications Current Medications Aspirin (Aspirin Chewable) 324 mg 1X ONCE PO ; Start 05/17/21 at 20:30; Stop 05/17/21 at 20:32; Status DC Sodium Chloride 1,000 ml @ 1,000 mls/hr Q1H IV Last administered on 05/17/21at 20:30; Start 05/17/21 at 20:30; Stop 05/17/21 at 21:29; Status DC Info (Review Meds) 1 ea PRN 1X PRN MC SEE COMMENTS; Start 05/17/21 at 21:15 Acetaminophen (Tylenol Supp) 650 mg PRN Q6HRS PRN NV FEVER > 100.5'F or 38'C; Start 05/17/21 at 21:15 Nicardipine HCl 50 mg/Sodium Chloride 250 ml @ 25 mls/hr CONT PRN IV HYPERTENSION; Start 05/17/21 at 21:15 Sodium Chloride 1,000 ml @ 100 mls/hr Q10H IV Last administered on 05/19/21at 03:00; Start 05/18/21 at 01:00 Ceftriaxone Sodium (Rocephin) 1 gm Q24H IVP Last administered on 05/18/21at 09:31; Start 05/18/21 at 09:00; Stop 05/18/21 at 14:05; Status DC Azithromycin 500 mg/Sodium Chloride 250 ml @ 250 mls/hr Q24H IV Last administered on 05/18/21at 09:31; Start 05/18/21 at 08:00; Stop 05/18/21 at 14:05; Status DC Gadoterate Meglumine (Clariscan) 14 ml 1X ONCE IVP Last administered on 05/18/21at 08:55; Start 05/18/21 at 08:45; Stop 05/18/21 at 08:46; Status DC Piperacillin Sod/ Tazobactam Sod (Zosyn Per Pharmacy) 1 each PRN DAILY PRN MC SEE COMMENTS; Start 05/18/21 at 14:15 Doxycycline Hyclate 100 mg/ Dextrose 100 ml @ 50 mls/hr 1X ONCE IV Last administered on 05/18/21at 14:26; Start 05/18/21 at 14:15; Stop 05/18/21 at 16:14; Status DC Doxycycline Hyclate 100 mg/ Dextrose 100 ml @ 50 mls/hr Q12HR IV Last administered on 05/20/21at 09:54; Start 05/18/21 at 21:00 Piperacillin Sod/ Tazobactam Sod 3.375 gm/Sodium Chloride 50 ml @ 100 mls/hr Q6HRS IV Last administered on 05/20/21at 05:40; Start 05/18/21 at 18:00 Amitriptyline HCl (Elavil) 25 mg QHS PO Last administered on 05/18/21at 21:49; Start 05/18/21 at 21:00 Atorvastatin Calcium (Lipitor) 20 mg HS PO Last administered on 05/18/21at 21:49; Start 05/18/21 at 21:00 Pregabalin (Lyrica) 75 mg TID PO Last administered on 05/18/21at 21:47; Start 05/18/21 at 21:00 Pantoprazole Sodium (Protonix) 40 mg DAILYAC PO ; Start 05/19/21 at 07:30; Stop 05/20/21 at 09:47; Status DC Pregabalin (Lyrica) 75 mg 1X ONCE PO Last administered on 05/18/21at 18:11; Start 05/18/21 at 17:30; Stop 05/18/21 at 17:31; Status DC Lidocaine HCl (Lidocaine 2% Viscous) 100 ml PRN 1X PRN MM FOR PROCEDURE Last administered on 05/19/21at 10:40; Start 05/19/21 at 10:30; Stop 05/20/21 at 10:29; Status DC Lidocaine HCl (Lidocaine 1% 20ml Vial) 20 ml PRN 1X PRN INJ SEE COMMENTS Last administered on 05/19/21at 10:40; Start 05/19/21 at 10:30; Stop 05/20/21 at 10:29; Status DC Lidocaine HCl (Lidocaine 4% Topical) 50 ml PRN 1X PRN MM SEE COMMENTS Last administered on 05/19/21at 10:40; Start 05/19/21 at 10:30; Stop 05/20/21 at 10:29; Status DC Lidocaine HCl (Lidocaine 1% 20ml Vial) 20 ml STK-MED ONCE .ROUTE ; Start 05/19/21 at 10:25; Stop 05/19/21 at 10:25; Status DC Lidocaine HCl (Lidocaine 2% Viscous) 100 ml STK-MED ONCE .ROUTE ; Start 05/19/21 at 10:25; Stop 05/19/21 at 10:25; Status DC Lidocaine HCl (Lidocaine 4% Topical) 50 ml STK-MED ONCE .ROUTE ; Start 05/19/21 at 10:25; Stop 05/19/21 at 10:26; Status DC Albuterol Sulfate (Ventolin Neb Soln) 2.5 mg 1X ONCE NEB Last administered on 05/19/21at 10:39; Start 05/19/21 at 10:30; Stop 05/19/21 at 10:31; Status DC Midazolam HCl (Versed) 4 mg 1X ONCE IV Last administered on 05/19/21at 11:01; Start 05/19/21 at 10:45; Stop 05/19/21 at 10:46; Status DC Fentanyl Citrate (Fentanyl 2ml Vial) 50 mcg 1X ONCE IVP Last administered on 05/19/21at 11:02; Start 05/19/21 at 10:45; Stop 05/19/21 at 10:46; Status DC Amino Acids/ Electrolytes/ Dextrose 1,000 ml @ 80 mls/hr [id number] IV Last administered on 05/20/21at 02:45; Start 05/19/21 at 14:15 Ondansetron HCl (Zofran) 4 mg PRN Q6HRS PRN IVP NAUSEA/VOMITING Last administered on 05/20/21at 09:53; Start 05/20/21 at 09:00 Pantoprazole Sodium (PROTONIX VIAL for IV PUSH) 40 mg DAILYAC IVP ; Start 05/21/21 at 07:30 Active Scripts Active Amox Tr-K Clv 875-125 Mg Tab (Amoxicillin/Potassium Clav) 1 Each Tablet 1 Tab PO BID 7 Days Reported Evista (Raloxifene Hcl) 60 Mg Tablet 60 Mg PO DAILY Atorvastatin Calcium 20 Mg Tablet 20 Mg PO HS Amitriptyline Hcl 25 Mg Tablet 1 Tab PO QHS Lyrica (Pregabalin) 75 Mg Capsule 1 Cap PO TID Omeprazole 40 Mg Capsule. 1 Cap PO DAILY Vitals/I & O Vital Sign - Last 24 Hours 05/19/21 05/19/21 05/19/21 05/19/21 13:00 14:00 15:00 16:00 Pulse 94 92 92 Resp 18 16 16 B/P (MAP) 98/57 (71) 101/54 (70) 104/56 (72) Pulse Ox 94 92 97 O2 Delivery Room Air Room Air Room Air Room Air 05/19/21 05/19/21 05/19/21 05/19/21 16:00 17:00 18:00 19:00 Temp 98.8 98.8 Pulse 94 96 97 92 Resp 18 16 16 18 B/P (MAP) 114/59 (77) 122/63 (82) 141/52 (81) 107/53 (71) Pulse Ox 99 91 93 96 O2 Delivery Room Air Room Air Room Air Room Air 05/19/21 05/19/21 05/19/21 05/19/21 20:00 20:53 21:00 22:00 Temp 98.3 98.3 Pulse 97 94 100 Resp 16 16 16 B/P (MAP) 118/50 (72) 119/71 (87) 117/60 (79) Pulse Ox 96 96 96 O2 Delivery Room Air Room Air Room Air Room Air 05/19/21 05/19/21 05/20/21 05/20/21 23:00 23:59 00:00 01:00 Temp 98.2 98.2 Pulse 96 90 88 Resp 16 18 18 B/P (MAP) 94/67 (76) 118/70 (86) 111/62 (78) Pulse Ox 96 91 98 O2 Delivery Room Air Room Air Room Air Room Air 05/20/21 05/20/21 05/20/21 05/20/21 02:00 03:00 04:00 04:00 Temp 98.2 98.2 Pulse 98 91 93 Resp 18 18 18 B/P (MAP) 113/60 (77) 133/69 (90) 144/64 (90) Pulse Ox 99 100 100 O2 Delivery Room Air Room Air Room Air Room Air 05/20/21 05/20/21 05/20/21 05:00 06:00 08:00 Pulse 88 92 Resp 18 18 B/P (MAP) 114/58 (76) 124/71 (88) Pulse Ox 95 96 O2 Delivery Room Air Room Air Room Air Intake and Output 05/19/21 05/19/21 05/20/21 14:59 22:59 06:59 Intake Total 150 ml 1273 ml Output Total 240 ml 700 ml 650 ml Balance -90 ml 573 ml -650 ml Justicifation of Admission Dx: Justifications for Admission: Justification of Admission Dx: Yes Acute Hemorrhagic Stroke: Acute Hemorrhagic Stroke SANDIE SANTIAGO MD May 20, 2021 12:37
[2021-05-21] MEDS ORDERED: PANTOPRAZOLE IV PUSH 40 MG VIAL. IVP SCH (07:30)
--- NOTE | 2021-05-21 18:12 | PATHOLOGY ---
Note [facility] Accession Number: [id number] TESTS RESULT FLAG UNITS REF RANGE LAB Clinician Provided Cytology Information No. of containers..01 Other (Miscellaneous) Source: BAL LLL #1 DIAGNOSIS: BAL LLL #1 NEGATIVE FOR MALIGNANT CELLS. REACTIVE BRONCHIAL EPITHELIAL CELLS AND PULMONARY MACROPHAGES ARE PRESENT. SILVER METHENAMINE STAINED SMEARS ARE NEGATIVE FOR PNEUMOCYSTIS JIROVECI. NO FUNGAL ORGANISMS ARE PRESENT. Signed out by: 02 Jeffrey Alston MD, Pathologist NPI- [id number] Performed by: Tori Williamson, Vocational Teacher ([facility]) Gross description: 01 7ML, BLOODY, RED /LCS 05/20/2021 1313 Local FLAG LEGEND: L-Low Normal,H-High Normal,LL-Alert Low,HH-Alert High <-Panic Low,>-Panic High,A-Abnormal,AA-Critical Abnormal Performed at: [address] [place] [address] Joel Nayak MD, 02 [facility] [address] [place] [address] Jeffrey Alston MD, Specimen Comment: A courtesy copy of this report has been sent to [phone] Specimen Comment: Report sent to Performed at: [address], [place], [place] [id number] MD Joel Nayak MD Phone: [phone]
--- NOTE | 2021-05-21 18:12 | PATHOLOGY ---
Note [facility] Accession Number: [id number] TESTS RESULT FLAG UNITS REF RANGE LAB Clinician Provided Cytology Information No. of containers..01 Other (Miscellaneous) Source: BAL LLL #2 DIAGNOSIS: BAL LLL #2 NEGATIVE FOR MALIGNANT CELLS REACTIVE BRONCHIAL EPITHELIAL CELLS AND PULMONARY MACROPHAGES PRESENT. SILVER METHENAMINE STAINED SMEARS ARE NEGATIVE FOR PNEUMOCYSTIS JIROVECI. NO FUNGAL ORGANISMS ARE PRESENT. Signed out by: 02 Jeffrey Alston MD, Pathologist NPI- [id number] Performed by: Tori Williamson, Refiner Operator ([facility]) Gross description: 01 5ML, BLOODY, RED /LCS 05/20/2021 1314 Local FLAG LEGEND: L-Low Normal,H-High Normal,LL-Alert Low,HH-Alert High <-Panic Low,>-Panic High,A-Abnormal,AA-Critical Abnormal Performed at: [address] [place] [address] Joel Nayak MD, 02 [facility] [address] [place] [address] Jeffrey Alston MD, Specimen Comment: A courtesy copy of this report has been sent to [phone] Specimen Comment: Report sent to Performed at: [address], [place], [place] [id number] MD Joel Nayak MD Phone: [phone]
--- NOTE | 2021-05-23 11:26 | PDOC3 ---
[facility]-Discharge Summary Date of Admission: Date of Admission: May 18, 2021 Date of Discharge: Date of Discharge: May 20, 2021 Discharge Diagnosis: Discharge Diagnosis: Acute intracranial hemorrhage, concerning for metastasis Left lower lobe pneumonia, possible gram-negative organisms possible cavitary mass History of COPD History of tobacco misuse Consults: Consults: Neurology recommendations Repeat MRI of the brain with and without contrast in 2 months, Dr. Monique's office is arranging, I left patient my card to call me in 2 or 3 months if she does not hear anything, I told her to make sure she does not fall through the cracks She is following up with Dr. Martin for yesterday's bronchoscopy results I do not see a need for CT angiogram Speech therapy is seeing her at same time as I, if she passes her swallow evaluation, she can be discharged Pulmonary recommendations Status post bronchoscopy yesterday so far cultures negative Patient okay to discharge home today continue Augmentin until she sees Dr. Martin in the office on June 03 Hospital Course: Hospital Course: 61-year-old female with past medical history of smoking, depression, neuropathic pain, peripheral vascular disease who comes in with tingling on the left side of her face. She also noticed double vision as well. Symptoms are coming and going. Patient does take aspirin 325 mg daily and has stated that she has had some hemoptysis. She also has been taking antibiotics for the past 2 months for pneumonia. Chest x-ray was done before admission on the day before and the chest x-ray apparently looked worse. PCP also ordered a CT head which showed intracranial hemorrhage and she was advised to come to the ED for further liudmila ging. Patient currently denies fevers, shortness of breath, abdominal pain, hematuria, dysuria or syncope or headaches. Please see hospital course after bronchoscopy above. Recommendations by neurology and pulmonary left above. Patient passed speech evaluation is able to swallow well. No changes in her diet. Patient instructed to follow-up closely with her PCP, neurology and pulmonary. Rest of hospital course was uneventful. Disposition: Disposition/Orders: D/C to Home Activity: Activity: Resume previous activity Diet: Diet: Cardiac Medications: Home Meds Active Scripts Amoxicillin/Potassium Clav (AMOX TR-K CLV 875-125 MG TAB) 1 Each Tablet, 1 TAB PO BID for pneumonia for 7 Days, #14 TAB Prov:BOBO MARSHALL MD 05/20/21 Reported Medications Raloxifene Hcl (EVISTA) 60 Mg Tablet, 60 MG PO DAILY for bone health, TAB 05/18/21 Atorvastatin Calcium (ATORVASTATIN CALCIUM) 20 Mg Tablet, 20 MG PO HS for FOR CHOLESTEROL, #30 TAB 0 Refills 05/18/21 Amitriptyline Hcl (AMITRIPTYLINE HCL) 25 Mg Tablet, 1 TAB PO QHS for sleep aid, #30 TAB 5 Refills 04/01/21 Pregabalin (LYRICA) 75 Mg Capsule, 1 CAP PO TID for neuropathy, #60 CAP 1 Refill 04/01/21 Omeprazole (OMEPRAZOLE) 40 Mg Capsule.dr, 1 CAP PO DAILY for gerd, #30 CAP 3 Refills 04/01/21 Discontinued Reported Medications Aspirin (ASPIRIN EC) 325 Mg Tablet.dr, 325 MG PO DAILY for prescribed, TAB.SR 05/18/21 Scheduled Amitriptyline Hcl (Amitriptyline Hcl), 1 TAB PO QHS, (Reported) Amoxicillin/Potassium Clav (Amox Tr-K Clv 875-125 Mg Tab), 1 TAB PO BID Atorvastatin Calcium (Atorvastatin Calcium), 20 MG PO HS, (Reported) Omeprazole (Omeprazole), 1 CAP PO DAILY, (Reported) Pregabalin (Lyrica), 1 CAP PO TID, (Reported) Raloxifene Hcl (Evista), 60 MG PO DAILY, (Reported) Discontinued Medications Aspirin (Aspirin Ec), 325 MG PO DAILY, (Reported) Total Time: Total Time: Total time spent was 33 minutes in preparing scripts, discharge planning with SWI and RN and preparing this discharge summary Patient seen and examined on day of discharge. No acute abnormal findings. Justicifation of Admission Dx: Justifications for Admission: Justification of Admission Dx: Yes Acute Hemorrhagic Stroke: Acute Hemorrhagic Stroke BOBO MARSHALL MD May 23, 2021 11:26
== END 2021-05-20 15:20 | disposition home or self-care (01) | DRG 64 ==
LOC: ER 15:16 → 1 WEST ICU 20:40
PROVIDERS: ADMIT Student in an Organized Health Care Education/Training Program; ATTEND Student in an Organized Health Care Education/Training Program
PROC: 0B9J7ZX Drainage of Left Lower Lung Lobe, Via Natural or Artificial Opening, Diagnostic (ICD-10-PCS; principal; 2021-05-19)
DX: I61.3 Nontraumatic intracerebral hemorrhage in brain stem (principal); J15.6 Pneumonia due to other Gram-negative bacteria; E78.5 Hyperlipidemia, unspecified; F17.210 Nicotine dependence, cigarettes, uncomplicated; H53.2 Diplopia; I10 Essential (primary) hypertension; I73.9 Peripheral vascular disease, unspecified; J43.9 Emphysema, unspecified; K21.9 Gastro-esophageal reflux disease without esophagitis; M21.371 Foot drop, right foot; R04.0 Epistaxis; Z79.82 Long term (current) use of aspirin; Z80.0 Family history of malignant neoplasm of digestive organs; Z80.3 Family history of malignant neoplasm of breast; Z80.8 Family history of malignant neoplasm of other organs or systems; F32.A Depression, unspecified; M19.90 Unspecified osteoarthritis, unspecified site
CPT/HCPCS: 31622; 36415; 70553; 71046; 80053; 81001; 83735; 83880; 84145; 84484; 85025; 85610; 87070; 87102; 87116; 87205; 87252; 87449; 87493; 87641; 87801; 88112; 88312; 93005; 94640; 96360; A9575; J0456; J0696; J2250; J2405; J2543; J3010; J3490; J7030; J7050; J7060; U0003; U0005; 92526-GN; 92610-GN; 97116-GP; 99285-25; G0378; J7613

== ENCOUNTER 2021-05-28 15:08 | Emergency (ER) | payer BC ==
[~2021-05-28] VITALS: Ht 162.6 cm; Wt 69.5 kg
[~2021-05-28 15:08] MED LIST changes: +ASPI325T11 PO; +ATOR20TA58 PO; +RALO60TA PO
[2021-05-28 16:08] LABS: BASO % 1 % (0-3); EOS # 0.1 x10^3/uL (0.0-0.7); EOS % 2 % (0-3); HEMATOCRIT 28.9 % (36.0-47.0); HEMOGLOBIN 9.3 g/dL (12.0-15.5); LYMPH # 1.2 x10^3/uL (1.0-4.8); LYMPH % 20 % (24-48); MEAN CORPUSCULAR HEMOGLOBIN 31 pg (25-35); MEAN CORPUSCULAR HGB CONC 32 g/dL (31-37); MEAN CORPUSCULAR VOLUME 95 fL (79-100); MONO # 0.4 x10^3/uL (0.0-1.1); MONO % 6 % (0-9); NEUT # 4.4 x10^3/uL (1.8-7.7); NEUT % 72 % (31-73); PLATELET COUNT 222 x10^3/uL (140-400); RED BLOOD COUNT 3.06 x10^6/uL (3.50-5.40); RED CELL DISTRIBUTION WIDTH 15.9 % (11.5-14.5); WHITE BLOOD COUNT 6.1 x10^3/uL (4.0-11.0)
[2021-05-28] MEDS ORDERED: IV NORMAL SALINE 1000ML BAG 1,000 ML IV ONE (16:15)
[2021-05-28] MEDS ORDERED: ONDANSETRON PF 4 MG/2 ML VIAL. IVP ONE (16:15)
[2021-05-28] MEDS ORDERED: FAMOTIDINE 20 MG/2 ML VIAL IVP ONE (16:15)
[2021-05-28 16:28] LABS: CALCIUM 9.1 mg/dL (8.5-10.1); CREATININE 1.1 mg/dL (0.6-1.0); GFR 50.2; POTASSIUM 3.8 mmol/L (3.5-5.1)
[2021-05-28 16:35] LABS: ALBUMIN 3.8 g/dL (3.4-5.0); TOTAL BILIRUBIN 0.5 mg/dL (0.2-1.0); TOTAL PROTEIN 7.5 g/dL (6.4-8.2)
--- NOTE | 2021-05-28 16:56 | RAD ---
Single view chest dated 05/28/2021 4:52 PM: COMPARISON: 05/17/2021 Clinical Indication: Cough. Findings: Single upright portable exam of the chest was performed. Heart and mediastinal contours are stable. H azy airspace disease at the left lung base, similar to prior study. Minimal patchy opacity at the rig ht base, also unchanged. No pneumothorax. Lungs are somewhat hyperinflated. IMPRESSION: 1. No significant interval change compared to 05/17/2021 Electronically signed by: Angel Sevilla MD (05/28/2021 4:54 PM) [id number]
--- NOTE | 2021-05-28 16:58 | RAD ---
Exam: CT head INDICATION: Dizziness TECHNIQUE: Sequential axial images through the head were obtained without the administration of IV co ntrast. Exposure: One or more of the following in the visualized dose reduction techniques were utilized for this examination: 1. Automated exposure control 2. Adjustment of the MA and/or KV according to patient size 3. Use of iterative of reconstructive technique Comparisons: 05/17/2021 FINDINGS: Interval increased size of the rounded hemorrhage at the posterior libertad measuring 1.3 cm in diameter. There is no midline shift or sulcal effacement. No acute vascular territory infarction is identified. Bhatt-white distinction is preserved. The ventricular system is within normal limits without compression hydrocephalus. The basal cisterns are well maintained. The visualized portions of the paranasal sinuses and mastoid air cells are well-pneumatized. No acute fractures. IMPRESSION: Increased size of the hemorrhage at the posterior libertad, currently measuring 1.3 cm in diameter. No si gnificant adjacent mass effect. FOR INTERNAL CODING PURPOSES Critical result: Findings discussed with ER provider Destinee at 05/28/2021 4:53 PM. RESULT CODE: (C) Electronically signed by: Harper Best MD (05/28/2021 4:56 PM) TAHIRA
--- NOTE | 2021-05-28 17:20 | EKG ---
[facility] [address] [place] [address] Test Date: 2021-05-28 Test Time: 15:27:30 Pat Name: PATTI ALICIA Department: Room: Gender: [facility]: : 1960 Requested By: ADRIANNA SAUNDERS Order Number: [id number] Reading MD: Emmanuel Blancas Measurements Intervals [place] Rate: 99 P: 70 CO: 162 QRS: -90 QRSD: 74 T: 59 QT: 360 QTc: 462 Interpretive Statements SINUS RHMTHM LEFT AXIS DEVIATION S1,S2,S3 PATTERN Electronically Signed On 05-31-2021 10:08:39 PLASTIC [employer] by Emmanuel Blancas
--- NOTE | 2021-05-28 18:00 | PHYS DOC ---
Past Medical History Past Medical History: CAD, COPD, High Cholesterol, Pneumonia Additional Past Medical Histor: Pontine hemorrhage, (ADRIANNA SAUNDERS STRAIN TECHNICIAN) Past Surgical History: , Tonsillectomy, Other Additional Past Surgical Histo: AAA repair, L 4th finger, L elbow, and R thumb (ADRIANNA SAUNDERS STRAIN TECHNICIAN) Smoking Status: Current Every Day Smoker Alcohol Use: None (ADRIANNA SAUNDERS APRN) General Adult EDM: Chief Complaint: MULTIPLE COMPLAINTS HPI: HPI: Patient is a 61-year-old female that presents today for vomiting, inability to focus eyes, spitting up blood, and overall not feeling well. Patient states she was admitted on May 17 for an intracranial hemorrhage and pneumonia patient states she was discharged 3 days later on Augmentin for her pneumonia and was instructed to follow-up with Dr. Garay neurosurgery for further management of her head bleed. Patient states she started having diarrhea immediately when she was at home and followed up with primary care physician on Monday which switched her to Bactrim for her pneumonia. Patient states since Monday she has had increased problems with her vision, vomiting, and balance. She states starting yesterday she started having vomiting with blood in it she is unsure if that is coming from her coughing for which she has had in the past or from her vomit. Patient states she has not taken her aspirin since she was admitted on the . Patient states she has been coughing quite a bit over the last couple days patient does continue to smoke per her report. Patient denies chest pain or shortness of breath at this time (ADRIANNA SAUNDERS STRAIN TECHNICIAN) Review of Systems: Review of Systems: Constitutional: Denies fever or chills. [] Eyes: Denies change in visual acuity. [] HENT: Denies nasal congestion or sore throat. [] Respiratory: Cough, hemoptysis Cardiovascular: Denies chest pain or edema. [] GI: Nausea and vomiting : Denies dysuria. [] Musculoskeletal: Denies back pain or joint pain. [] Integument: Denies rash. [] Neurologic: Inability to focus eyes and balance issues along with headache Endocrine: Denies polyuria or polydipsia. [] Lymphatic: Denies swollen glands. [] Psychiatric: Denies depression or anxiety. [] (ADRIANNA SAUNDERS STRAIN TECHNICIAN) Heart Score: C/O Chest Pain: N/A Risk Factors: Risk Factors: DM, Current or recent (<one month) smoker, HTN, HLP, family history of CAD, obesity. Risk Scores: Score 0 - 3: 2.5% MACE over next 6 weeks - Discharge Home Score 4 - 6: 20.3% MACE over next 6 weeks - Admit for Clinical Observation Score 7 - 10: 72.7% MACE over next 6 weeks - Early Invasive Strategies (ADRIANNA SAUNDERS STRAIN TECHNICIAN) Current Medications: Current Medications Medications (Trade) Dose Ordered Sig/Andres Start Time Stop Time Status Last Admin Dose Admin Famotidine (Pepcid Vial) 20 mg 1X ONCE 05/28/21 16:15 05/28/21 16:16 DC 05/28/21 16:35 20 MG Ondansetron HCl (Zofran) 4 mg 1X ONCE 05/28/21 16:15 05/28/21 16:16 DC 05/28/21 16:35 4 MG Sodium Chloride 1,000 ml @ 500 mls/hr 1X ONCE 05/28/21 16:15 05/28/21 18:14 05/28/21 16:34 500 MLS/HR (ADRIANNA SAUNDERS STRAIN TECHNICIAN) Allergies: Allergies: Allergies Coded Allergies Type Severity Reaction Last Updated Verified No Known Drug Allergies 04/01/21 No (ADRIANNA SAUNDERS STRAIN TECHNICIAN) Physical Exam: PE: Constitutional: Well developed, well nourished, no acute distress, non-toxic appearance. [] HENT: Normocephalic, atraumatic, bilateral external ears normal, oropharynx moist, no oral exudates, nose normal. [] Eyes: PERRLA, EOMI, conjunctiva normal, no discharge. [] Neck: Normal range of motion, no tenderness, supple, no stridor. [] Cardiovascular:Heart rate regular rhythm, no murmur [] Lungs & Thorax: Bilateral breath sounds coarse with diminished bases, patient is coughing and blood noted in Kleenex after coughing Abdomen: Bowel sounds normal, soft, no tenderness, no masses, no pulsatile masses. [] Skin: Warm, dry, no erythema, no rash. [] Back: No tenderness, no CVA tenderness. [] Extremities: No tenderness, no cyanosis, no clubbing, ROM intact, no edema. [] Neurologic: Alert and oriented X 3, normal motor function, normal sensory function, no focal deficits noted. [] Psychologic: Affect normal, judgement normal, mood normal. [] (ADRIANNA SAUNDERS APRN) Current Patient Data: Labs: Laboratory Tests Test 05/28/21 15:35 White Blood Count 6.1 x10^3/uL (4.0-11.0) Red Blood Count 3.06 x10^6/uL (3.50-5.40) L Hemoglobin 9.3 g/dL (12.0-15.5) L Hematocrit 28.9 % (36.0-47.0) L Mean Corpuscular Volume 95 fL (79-100) Mean Corpuscular Hemoglobin 31 pg (25-35) Mean Corpuscular Hemoglobin Concent 32 g/dL (31-37) Red Cell Distribution Width 15.9 % (11.5-14.5) H Platelet Count 222 x10^3/uL (140-400) Neutrophils (%) (Auto) 72 % (31-73) Lymphocytes (%) (Auto) 20 % (24-48) L Monocytes (%) (Auto) 6 % (0-9) Eosinophils (%) (Auto) 2 % (0-3) Basophils (%) (Auto) 1 % (0-3) Neutrophils # (Auto) 4.4 x10^3/uL (1.8-7.7) Lymphocytes # (Auto) 1.2 x10^3/uL (1.0-4.8) Monocytes # (Auto) 0.4 x10^3/uL (0.0-1.1) Eosinophils # (Auto) 0.1 x10^3/uL (0.0-0.7) Basophils # (Auto) 0.0 x10^3/uL (0.0-0.2) Sodium Level 140 mmol/L (136-145) Potassium Level 3.8 mmol/L (3.5-5.1) Chloride Level 103 mmol/L (98-107) Carbon Dioxide Level 22 mmol/L (21-32) Anion Gap 15 (6-14) H Blood Urea Nitrogen 13 mg/dL (7-20) Creatinine 1.1 mg/dL (0.6-1.0) H Estimated GFR (Cockcroft-Gault) 50.2 BUN/Creatinine Ratio 12 (6-20) Glucose Level 121 mg/dL (70-99) H Lactic Acid Level 1.6 mmol/L (0.4-2.0) Calcium Level 9.1 mg/dL (8.5-10.1) Total Bilirubin 0.5 mg/dL (0.2-1.0) Aspartate Amino Transferase (AST) 20 U/L (15-37) Alanine Aminotransferase (ALT) 17 U/L (14-59) Alkaline Phosphatase 95 U/L (46-116) Troponin I High Sensitivity 200 ng/L (4-50) H Total Protein 7.5 g/dL (6.4-8.2) Albumin 3.8 g/dL (3.4-5.0) Albumin/Globulin Ratio 1.0 (1.0-1.7) Lipase 46 U/L (73-393) L Laboratory Tests 05/28/21 15:35 Laboratory Tests 05/28/21 15:35 Vital Signs: Vital Signs Date Time Temp Pulse Resp B/P (MAP) Pulse Ox O2 Delivery O2 Flow Rate FiO2 05/28/21 17:22 84 21 103/51 (68) 96 Room Air 05/28/21 16:55 94 27 139/59 (85) 96 Room Air 05/28/21 16:22 94 26 120/58 (78) 99 Room Air 05/28/21 15:52 94 16 142/63 (89) 99 Room Air 05/28/21 15:10 97.5 99 20 129/60 (83) 96 Room Air 97.5 Vital Signs Date Time Temp Pulse Resp B/P (MAP) Pulse Ox O2 Delivery O2 Flow Rate FiO2 05/28/21 16:55 94 27 139/59 (85) 96 Room Air 05/28/21 15:10 97.5 97.5 (ADRIANNA SAUNDERS APRN) EKG: EKG: EKG done at [address] Edmonds at 1530 no STEMI noted does show a sinus rhythm with an abnormal left axis deviation consider an anterior septal infarct OK interval is 162 with a QT of 360 ms rate of 99 [] (ADRIANNA SAUNDERS APRN) Radiology/Procedures: Radiology/Procedures: REASON: dizziness PROCEDURE: CT HEAD WO CONTRAST Exam: CT head INDICATION: Dizziness TECHNIQUE: Sequential axial images through the head were obtained without the administration of IV contrast. Exposure: One or more of the following in the visualized dose reduction techniques were utilized for this examination: 1. Automated exposure control 2. Adjustment of the MA and/or KV according to patient size 3. Use of iterative of reconstructive technique Comparisons: 05/17/2021 FINDINGS: Interval increased size of the rounded hemorrhage at the posterior libertad measuring 1.3 cm in diameter. There is no midline shift or sulcal effacement. No acute vascular territory infarction is identified. Bhatt-white distinction is preserved. The ventricular system is within normal limits without compression hydrocephalus. The basal cisterns are well maintained. The visualized portions of the paranasal sinuses and mastoid air cells are well- pneumatized. No acute fractures. IMPRESSION: Increased size of the hemorrhage at the posterior libertad, currently measuring 1.3 cm in diameter. No significant adjacent mass effect. FOR INTERNAL CODING PURPOSES Critical result: Findings discussed with ER provider Adrianna at 05/28/2021 4:53 PM. RESULT CODE: (C) [] (ADRIANNA SAUNDERS STRAIN TECHNICIAN) Course & Med Decision Making: Course & Med Decision Making Pertinent Labs and Imaging studies reviewed. (See chart for details) [id number] contacted from radiology stating that the pontine hemorrhage that was noted on May 17 MRI has grown in size. [id number] contacted the [facility] for transfer of this patient currently [facility] does not have neurosurgery coverage at this time. Information given to the transfer team and radiological findings were clouded to [id number] [facility] return call as states they will accept patient, Dr. Govea is the accepting physician and she will be going directly to the intensive care unit CAROLYN paperwork was completed and given to the staff nurse. Patient and family was updated on the transfer and they are agreeable to transfer. Patient continues to have no neurological decline while she is in the department. We continue to wait for the repeat troponin and Covid swabs (ADRIANNA SAUNDERS STRAIN TECHNICIAN) Dragon Disclaimer: Dragon Disclaimer: This electronic medical record was generated, in whole or in part, using a voice recognition dictation system. (ADRIANNA SAUNDERS APRN) Departure Departure Impression: Primary Impression: Pontine hemorrhage Disposition: 02 SHORT TERM HOSPITAL Condition: GUARDED Referrals: DONG NÚÑEZ MD (PCP) Attending Signature Attending Signature I have reviewed the PA/BEAD FLIPPER's note and plan of care. I was available for c onsultation as needed during the patient's visit in the emergency department. I agree with the clinical impression, plan, and disposition. (ESTHER EDMONDS DO) ADRIANNA SAUNDERS APRN May 28, 2021 18:00 ESTHER EDMONDS DO May 29, 2021 06:25
[2021-05-28] MEDS ORDERED: fentaNYL PF VIAL 100 MCG/2 ML VIAL IVP ONE (18:15)
[2021-05-28 19:22] VITALS: BP 107/55
== END 2021-05-28 19:38 | disposition short-term general hospital (02) ==
LOC: ER 15:08
DX: I61.3 Nontraumatic intracerebral hemorrhage in brain stem (principal); Z20.822 Contact with and (suspected) exposure to COVID-19; E78.00 Pure hypercholesterolemia, unspecified; J44.9 Chronic obstructive pulmonary disease, unspecified; I25.10 Atherosclerotic heart disease of native coronary artery without angina pectoris; F17.200 Nicotine dependence, unspecified, uncomplicated
CPT/HCPCS: 36415; 70450; 71045; 80053; 83605; 83690; 84484; 85025; 85610; 85730; 87426; 93005; 96361; 96374; 96375; 99285; J2405; J3010; J3490; J7030; U0003; U0005